=== PATIENT | female | born 1985 | race Two or more races ===

== ENCOUNTER 2022-11-24 08:04 | Outpatient (REF) | payer OTHER, SELFPAY ==
--- NOTE | ~2022-11-24 | XR_ITS ---
EXAMINATION: XR SACROILIAC JOINTS CLINICAL INFORMATION: Dorsalgia. COMPARISON: None available. TECHNIQUE: 3 views of the sacroiliac joints FINDINGS: Sacroiliac joints appear unremarkable without evidence of effusion or widening. No significant sclerosis or spurring is appreciated. Visualized portions of the pelvis do not demonstrate acute fracture or diastasis. No destructive bony lesions are appreciated. XR/XR sacroiliac joint min 3V IMPRESSION: No significant abnormality of the sacroiliac joints identified.
== END 2022-11-24 08:05 | disposition home or self-care (01) ==
LOC: HO.XRAY 08:04
PROVIDERS: PCP Internal Medicine; Visit Provider Internal Medicine Rheumatology
DX: M54.9 Dorsalgia, unspecified (principal); M72.2 Plantar fascial fibromatosis; M47.816 Spondylosis without myelopathy or radiculopathy, lumbar region
CPT/HCPCS: 72202; 99212

== ENCOUNTER 2022-11-24 09:44 | Outpatient (REF) | payer OTHER, SELFPAY ==
[2022-11-24 11:05] LABS: C Reactive Protein < 0.10 mg/dL (< or = 0.50)
[2022-11-24 11:39] LABS: Erythrocyte Sedimentation Rate 5 MM/HR (0-20)
== END 2022-11-24 09:45 | disposition home or self-care (01) ==
LOC: HO.10HDL 09:44
PROVIDERS: Visit Provider Internal Medicine Rheumatology
DX: M54.9 Dorsalgia, unspecified (principal)
CPT/HCPCS: 36415; 85652; 86140

== ENCOUNTER 2022-12-27 11:53 | Emergency (ER) | payer OTHER, SELFPAY ==
--- NOTE | ~2022-12-27 | XR_ITS ---
EXAMINATION: XR CHEST CLINICAL INFORMATION: Chest pressure COMPARISON: None available. TECHNIQUE: 2 views of the chest were obtained. FINDINGS: No significant abnormality is noted involving the heart, lungs, mediastinum, bony thorax or soft tissues. XR/XR chest 2V IMPRESSION: Unremarkable chest examination.
[2022-12-27 12:05] VITALS: BP 151/95; PULSE 110; RESP 18; TEMP 37; O2SAT 99; BMI 34.3
--- NOTE | 2022-12-27 12:13 | ECG_ITS ---
Test Reason : chest pain Blood Pressure : / mmHG Vent. Rate : 092 BPM Atrial Rate : 092 BPM P-R Int : 180 ms QRS Dur : 070 ms QT Int : 364 ms P-R-T Axes : 062 028 040 degrees QTc Int : 450 ms Normal sinus rhythm Possible Left atrial enlargement Borderline ECG When compared with ECG of 20-NOV-2017 22:02, No significant change was found Referred By: Generic ED Physician Electronically Signed By:JOHNNIE WALKER MD
[2022-12-27 12:29] LABS: MANUAL DIFF FLAG NO
[2022-12-27 12:30] LABS: Basophils Absolute Auto 0.1 X10*3/uL (0.0-0.2); Basophils Percent Auto 0.4 % (0-2); Eosinophils Percent Auto 0.3 % (0-4); Hematocrit 39.1 % (37.0-47.0); Hemoglobin 13.5 g/dl (12.0-16.0); Imm Gran Abs Auto 0.04 X10*3/uL (0.00-0.03); Imm Gran Pct Auto 0.3 % (0.0-0.4); Lymphocytes Percent Auto 14.4 % (20-40); Mean Corpuscular HGB Conc 34.5 g/dl (31.0-35.0); Mean Corpuscular Hemoglobin 29.3 pg (27.0-33.0); Mean Platelet Volume 9.1 fL (9.4-12.3); Monocytes Absolute Auto 0.7 X10*3/uL (0.1-1.2); Monocytes Percent Auto 5.4 % (2-11); Neutrophils Absolute Auto 10.9 x10*3/uL (2.0-8.3); Neutrophils Percent Auto 79.2 % (45-73); Platelet Count 296 X10*3/uL (160-400); Red Cell Distribution Width 12.8 % (11.0-16.0); White Blood Count 13.7 X10*3/uL (4.8-10.8)
[2022-12-27 12:47] LABS: Alanine Aminotransferase 14 U/L (0-31); Albumin Level 4.2 g/dL (3.5-5.0); Alkaline Phosphatase 59 U/L (39-117); Anion Gap 16 (12-20); Aspartate Amino Transferase 15 U/L (5-31); Bilirubin Direct 0.2 mg/dL (0.0-0.5); Bilirubin Total 0.5 mg/dL (0.0-1.0); Blood Urea Nitrogen 10 mg/dL (9-16); Calcium 9.5 mg/dL (8.4-10.2); Carbon Dioxide 21 mmol/L (22-29); Chloride 106 mmol/L (96-108); Creatinine Clr Calc Pharmacy 108.4; Estimated Glomerular Filt Rate > 60; Glucose Random 113 mg/dL (60-115); Potassium 3.6 mmol/L (3.3-5.1); Sodium 139 mmol/L (135-145); Total Protein 7.4 g/dL (6.5-8.0)
[2022-12-27] MEDS: 0.9 % Sodium Chloride 1,000 ML 999 ML IV (13:31)
[2022-12-27] MEDS: LORazepam 2 MG/ML VIAL 0.5 MG IVPUSH (13:39)
--- NOTE | 2022-12-27 13:45 | PC.NURSE ---
well appearing individual, resting comfortably in bed. iv established, fluids infusing. vss
[2022-12-27 14:03] LABS: Troponin-I High Sensitivity 36.8 ng/L (<3.5-17.0)
[2022-12-27 14:13] VITALS: BP 134/72; PULSE 75; RESP 18; TEMP 36.9; O2SAT 100
--- NOTE | 2022-12-27 14:42 | ED.GENADULT ---
HPI - General Adult General Chief complaint: Anxiety Stated complaint: panic attacks Time Seen by Provider: 12/27/22 12:57 Source: patient and RN notes reviewed Mode of arrival: ambulatory Limitations: no limitations History of Present Illness HPI narrative: This is a 37-year-old female, with a past medical history of PTSD, OCD, anxiety, and panic attack disorder, who presents emergency department with complaints of panic attack that occurred this morning. Patient reports that last night she went out drinking, reports that she drinks approximately 7-8 mixed beverages. She went to bed and woke up this morning feeling ?hung over?. She states that she felt her heart racing and had some numbness and tingling down her left arm and up into her left jaw. She denies any chest pain however reported that she had some chest tightness. She states that these symptoms are typical of her anxiety attacks that she has had in the past. She states that she took her prescribed Ativan which did not help her. She states that Ativan typically helps her panic attacks. Patient reports that she still has the numbness and tingling down her fingers and up into her jaw. Patient denies any personal cardiac history. She denies history of diabetes, hypertension, hyperlipidemia. No other complaints or concerns at this time. MD complaint: Anxiety, numbness tingling, chest tightness Relieving factors: none Exacerbating factors: none Associated symptoms: denies other symptoms Treatments prior to arrival: none Related Data Home Medications Medication Instructions Recorded Confirmed ibuprofen 800 mg tablet 800 mg PO Q8H PRN pain 11/19/22 11/24/22 lorazepam 0.5 mg tablet 0.5 mg PO DAILY PRN panic attack 11/19/22 11/24/22 Allergies Allergy/AdvReac Type Severity Reaction Status Date / Time No Known Allergies Allergy Unverified 11/24/22 08:31 Review of Systems Review of Systems: Constitutional: No Weight loss, No Fever, No Chills, No Night Sweats, No Fatigue, No Malaise ENT/Mouth: No Hearing loss, No Ear Pain, No Nasal Congestion, No Sinus Pain, No Hoarseness, No sore throat, No Rhinorrhea, No Swallowing Difficulty Eyes: No Eye Pain, No Swelling, No Redness, No Foreign Body, No Discharge, No Vision Changes Cardiovascular: + chest tightness No Chest Pain, No SOB, No Dyspnea on Exertion, No Orthopnea, No Edema, No Palpitations Respiratory: No Cough, No Sputum, No Wheezing, No Smoke Exposure, No Dyspnea Gastrointestinal: No Nausea, No Vomiting, No Diarrhea, No Constipation, No Abdominal pain, No Hematochezia, No Melena Genitourinary: No irregular bleeding, No Dysuria, No Urinary Frequency, No Hematuria, No Urinary Incontinence/retention, No Urgency, No Flank Pain, No Urinary Flow Changes, No Hesitancy Musculoskeletal: No joint pain, No Myalgias, No Joint Swelling Skin: No Skin Lesions, No rash Neuro: No Weakness, + Numbness,+ Paresthesias, No Loss of Consciousness, No Dizziness, No Headache Psych: +Anxiety/Panic, No Depression, No SI/HI/AH/VH, No Social Issues, Heme/Lymph: No Bruising, No Bleeding,No Lymphadenopathy Endocrine: No Polyuria, No Polydipsia, No Temperature Intolerance Yes all other systems are reviewed and are negative Constitutional: Constitutional: Reports as per [facility] Past Medical History Medical History (Updated 12/27/22 @ 16:25 by MELINDA Flores) Acute midline back pain Anxiety and depression Hyperlipidemia Multiple joint pain Surgical History (Updated 11/19/22 @ 10:11 by ANNA Alvarez) History of abnormal cervical Pap smear Family History Family History (Updated 11/24/22 @ 08:32 by ANNA Alvarez) Mother Lung cancer Father Medical history unknown Social History Social History (Updated 11/24/22 @ 08:33 by ANNA Alvarez) Alcohol intake: current Alcohol intake frequency: holidays/special occasions only Patient Tobacco Use Status: Former Tobacco user Advance Directives: No Advance Directives Information Provided: No Current occupational status: employed Current occupation: Hairdresser Physical Exam ED Vital Signs: Vital Signs - 24 hr 12/27/22 12:05 12/27/22 14:13 12/27/22 16:15 Temperature 98.6 F 98.4 F 98.4 F Pulse Rate 110 H 75 75 Respiratory Rate 18 18 16 Blood Pressure 151/95 H 134/72 139/84 Pulse Oximetry 99 100 100 Oxygen Delivery Method Room Air Room Air Room Air BMI result Body Mass Index 34.3 Const General: cooperative, comfortable and no acute distress Orientation/consciousness: patient oriented x3 Limitations: no limitations [facility] Head: Yes normal to inspection, Yes normocephalic and Yes atraumatic Ears: hearing grossly normal bilaterally General nose exam: Normal external nose present Face and sinus: Yes normal facial exam Mouth: Normal oral and palatal mucosa present, oropharynx normal and moist mucous membranes Throat: Yes posterior oropharynx normal Eyes General: appearance normal, both eyes and all related structures Eyelids: Yes eyelids normal Conjunctivae: conjunctivae normal Sclerae: sclerae normal Pupils: Equal, round and reactive pupils present EOM: EOMs intact bilaterally Neck Neck: Yes normal visual inspection, Yes full ROM and Yes no lymphadenopathy Lymphatic: no lymphadenopathy noted Chest Chest palpation & inspection: normal inspection of the chest Resp Effort & Inspection: normal respiratory effort and able to speak in complete sentences Auscultation: clear to auscultation bilaterally, no crackles, no rales, no rhonchi and no wheezes Cardio Rate: regular rate Rhythm: regular rhythm Heart sounds: S1 normal heart sound present and S2 normal heart sound present GI Inspection: Yes normal to inspection Palpation (GI): Soft to palpation, nontender and no guarding Skin General skin exam: no rashes or lesions noted Trauma: no lacerations or abrasions Wounds: no wounds Neuro General: patient oriented x3 and moves all extremities Cranial nerves: Yes Equal, round and reactive pupils present Extrem General: Yes normal to inspection Right upper extremity: normal to inspection Left upper extremity: normal to inspection Right lower extremity: normal to inspection Left lower extremity: normal to inspection Course Reevaluation(s) Reevaluation #1: Troponin elevated at 36.8. Leukocytosis at 13.7. I suspect this is demand and not cardiac in nature. Heart score 1. Will repeat troponin in 3 hours. Patient re-evaluated and reports that her symptoms have completely resolved. Reevaluation #2: Patient re-evaluated, has been asymptomatic. Pending 2nd troponin draw at 4:40pm. Time: 16:21 Reevaluation #3: Second troponin negative delta, patient feeling better eager for discharge given precautions on when to return your patient understands and agrees with the plan. Medications Administered Discontinued Medications Generic Name Dose Route Start Last Admin Trade Name Freq PRN Reason Stop Dose Admin Sodium Chloride 1,000 mls @ 999 mls/hr 12/27/22 13:10 12/27/22 16:56 Ns IV 12/27/22 14:10 Infused .Q1H1M ONE Infusion Lorazepam 0.5 mg 12/27/22 13:10 12/27/22 13:39 Lorazepam 2 Mg/Ml Vial IVPUSH 12/27/22 13:11 0.5 mg ONCE ONE Administration Medical Decision Making Medical Decision Making [facility] Narrative: 37-year-old female, with a past medical history of anxiety, PTSD, OCD, and panic disorder, who presents to the emergency department for numbness and tingling down her left arm and up into her left jaw since this morning. Patient admits that last night she went out drinking and consumed 7-8 mixed beverages last night. She woke up this morning feeling ?hung over , she states that she is feeling dehydrated and felt her heart racing. She notices some numbness and tingling down her left arm and up into her left jaw. Her symptoms were typical of her anxiety attacks that she has had in the past, however they typically respond to Ativan which today this did not help her. On arrival, blood pressure 151/95, pulse 110, all other vital signs within normal limits. I do not suspect ACS at this time however given chest tightness and numbness and tingling down left arm and into left jaw will order troponin. Plan: Labs, EKG, 1 L IV fluids and Ativan 0.5mg IV ordered. Differential Diagnosis Differential Diagnoses: The differential diagnosis associated with the presentation includes Anxiety, panic disorder, dehydration, electrolyte abnormality, ACS-less likely Admission/Observation Consideration of admission/observation: Escalation of care including admission/observation considered Lab Data [facility] Lab Attestation statement: I reviewed the patient's lab results. 12/27/22 12:26 12/27/22 12:26 Labs: Lab Results 12/27/22 12/27/22 12/27/22 Range/Units 12:26 12:26 13:40 WBC 13.7 H (4.8-10.8) X10*3/uL RBC 4.60 (4.20-5.50) X10*6/uL Hgb 13.5 (12.0-16.0) g/dl Hct 39.1 (37.0-47.0) % MCV 85.0 (80.0-98.0) fL MCH 29.3 (27.0-33.0) pg MCHC 34.5 (31.0-35.0) g/dl RDW 12.8 (11.0-16.0) % Plt Count 296 (160-400) X10*3/uL MPV 9.1 L (9.4-12.3) fL Immature Gran % (Auto) 0.3 (0.0-0.4) % Neut % (Auto) 79.2 H (45-73) % Lymph % (Auto) 14.4 L (20-40) % [place] % (Auto) 5.4 (2-11) % Eos % (Auto) 0.3 (0-4) % Baso % (Auto) 0.4 (0-2) % Lymph # (Auto) 2.0 (1.2-4.9) X10*3/uL [place] # (Auto) 0.7 (0.1-1.2) X10*3/uL Eos # (Auto) 0.0 (0.0-0.4) X10*3/uL Baso # (Auto) 0.1 (0.0-0.2) X10*3/uL Abs Immat Gran (auto) 0.04 H (0.00-0.03) X10*3/uL Absolute Neuts (auto) 10.9 H (2.0-8.3) x10*3/uL Absolute Nucleated RBC 0.000 (0.0-0.012) X10*3/uL Nucleated RBC % (auto) 0.0 (0.0-0.2) /100WBC Sodium 139 (135-145) mmol/L Potassium 3.6 (3.3-5.1) mmol/L Chloride 106 (96-108) mmol/L Carbon Dioxide 21 L (22-29) mmol/L Anion Gap 16 (12-20) BUN 10 (9-16) mg/dL Creatinine 0.76 (0.5-1.4) mg/dL Estim Creat Clear Calc 108.4 Estimated GFR > 60 Random Glucose 113 (60-115) mg/dL Calcium 9.5 (8.4-10.2) mg/dL Total Bilirubin 0.5 (0.0-1.0) mg/dL Direct Bilirubin 0.2 (0.0-0.5) mg/dL AST 15 (5-31) U/L ALT 14 (0-31) U/L Alkaline Phosphatase 59 (39-117) U/L Troponin I High Sens 36.8 H (<3.5-17.0) ng/L Total Protein 7.4 (6.5-8.0) g/dL Albumin 4.2 (3.5-5.0) g/dL Urine Test (NEGATIVE) 12/27/22 12/27/22 Range/Units 15:07 16:55 WBC (4.8-10.8) X10*3/uL RBC (4.20-5.50) X10*6/uL Hgb (12.0-16.0) g/dl Hct (37.0-47.0) % MCV (80.0-98.0) fL MCH (27.0-33.0) pg MCHC (31.0-35.0) g/dl RDW (11.0-16.0) % Plt Count (160-400) X10*3/uL MPV (9.4-12.3) fL Immature Gran % (Auto) (0.0-0.4) % Neut % (Auto) (45-73) % Lymph % (Auto) (20-40) % [place] % (Auto) (2-11) % Eos % (Auto) (0-4) % Baso % (Auto) (0-2) % Lymph # (Auto) (1.2-4.9) X10*3/uL [place] # (Auto) (0.1-1.2) X10*3/uL Eos # (Auto) (0.0-0.4) X10*3/uL Baso # (Auto) (0.0-0.2) X10*3/uL Abs Immat Gran (auto) (0.00-0.03) X10*3/uL Absolute Neuts (auto) (2.0-8.3) x10*3/uL Absolute Nucleated RBC (0.0-0.012) X10*3/uL Nucleated RBC % (auto) (0.0-0.2) /100WBC Sodium (135-145) mmol/L Potassium (3.3-5.1) mmol/L Chloride (96-108) mmol/L Carbon Dioxide (22-29) mmol/L Anion Gap (12-20) BUN (9-16) mg/dL Creatinine (0.5-1.4) mg/dL Estim Creat Clear Calc Estimated GFR Random Glucose (60-115) mg/dL Calcium (8.4-10.2) mg/dL Total Bilirubin (0.0-1.0) mg/dL Direct Bilirubin (0.0-0.5) mg/dL AST (5-31) U/L ALT (0-31) U/L Alkaline Phosphatase (39-117) U/L Troponin I High Sens 32.0 H (<3.5-17.0) ng/L Total Protein (6.5-8.0) g/dL Albumin (3.5-5.0) g/dL Urine Test NEGATIVE (NEGATIVE) Independent Interpretation I performed an independent interpretation of an: EKG and Plain X-Ray Interpretation: Chest x-ray reviewed by me with no acute consolidation noted. Will wait for official read EKG normal sinus rhythm with a ventricular rate of 92 beats per minute, SD interval 180, QTC 450, no ST elevation or depression. External Record Review External record reviewed: Inpatient record, Office record, Outpatient record, Prior outpatient labs, Prior outpatient radiology, Primary care record and Outside ED record Scores Heart Score History: -0- slightly suspicious ECG: -0- normal Age: -0- < or = 45 Risk factory: -0- no risk factors known Troponin: -1- >1 - <3x normal limit Score: 1 Risk: 1.7% Discharge Plan Discharge Clinical Impression: Acute anxiety Patient Disposition: Home, Self-Care Instructions: Anxiety (ED) Additional Instructions: Your workup today was reassuring. Please stay well hydrated and take your are ready prescribed lorazepam as needed for a panic attacks. Please follow-up with your primary care physician regarding this visit. If any new or worsening symptoms occur, including but not limited to chest pain, shortness of breath, palpitations, numbness tingling or any other symptoms, please return for re-evaluation. Prescriptions: No Action ibuprofen 800 mg tablet 800 mg PO Q8H PRN (Reason: pain) lorazepam 0.5 mg tablet 0.5 mg PO DAILY PRN (Reason: panic attack)
[2022-12-27 15:11] LABS: UPreg QC Valid YES
[2022-12-27 15:13] LABS: Urine Pregnancy NEGATIVE (NEGATIVE)
[2022-12-27 16:15] VITALS: BP 139/84; PULSE 75; RESP 16; TEMP 36.9; O2SAT 100
== END 2022-12-27 17:46 | disposition home or self-care (01) ==
PROVIDERS: Physician Assistant Medical; Emergency Provider Internal Medicine; PCP Internal Medicine
DX: F41.1 Generalized anxiety disorder (principal); F43.0 Acute stress reaction; F41.0 Panic disorder [episodic paroxysmal anxiety]; R07.89 Other chest pain; Z79.899 Other long term (current) drug therapy
CPT/HCPCS: 36415; 71046; 80053; 81025; 82248; 84484; 85025; 93005; 96361; 96374; 99284; 99285; J2060

== ENCOUNTER 2025-04-12 13:26 | Outpatient (AMB) | payer OTHER, SELFPAY ==
--- NOTE | 2025-04-12 13:27 | A.OFFVIS_ITS ---
Intake Visit Reasons: brain fog Allergies No Known Allergies Allergy (Unverified 11/24/22 08:31) Medication List - Last Reconciled 04/12/25 by Sydnee Franco MD cholecalciferol (vitamin D3) (Vitamin D3) 100 mcg PO DAILY escitalopram oxalate 5 mg PO DAILY ibuprofen 800 mg PO Q8H PRN lorazepam 0.5 mg PO DAILY PRN propranolol 10 mg PO BID PRN HPI Comments Details: 40 years old right-handed woman with symptoms of brain fog and forgetfulness and body pain for about a year. She also suffered from anxiety disorder. She said that this was happening almost every week and lasting for days to weeks. She was also having headaches, which were almost every day. Pain might start in the back of the head on both side coming to the front. She was using eyes for relief. Otherwise pain could continue. She has seen different doctors for these symptoms and apparently no conclusion was reached. Apparently she had a brain MRI done that revealed some white matter changes. In the past she has been diagnosed with interstitial cystitis and related symptoms. Energy level was low. [facility] Medical History (Updated 04/12/25 @ 14:00 by Sydnee Franco MD) Obesity Urinary frequency Vitamin D deficiency Panic attacks Prediabetes Cervicalgia Allergic rhinitis Brain fog Acute midline back pain Multiple joint pain Anxiety and depression Hyperlipidemia Surgical History (Updated 11/19/22 @ 10:11 by ANNA Alvarez) History of abnormal cervical Pap smear Family History (Updated 11/24/22 @ 08:32 by ANNA Alvarez) Mother Lung cancer Father Medical history unknown Social History (Updated 11/24/22 @ 08:33 by ANNA Alvarez) Alcohol intake: current Alcohol intake frequency: holidays/special occasions only Patient Tobacco Use Status: Former Tobacco user Current occupational status: employed Current occupation: Hairdresser Review of Systems Const Details: In terms of review of system she complain of her admitted to anxiety, urinary urgency, joint pain back pain or neck pain, fatigue and malaise, ear pain, forgetfulness, palpitations, muffled hearing, dryness of skin, sinus problems, depression headaches, dizziness and itching. Physical Exam Neuro Other: Mental Status: Alert and oriented to person, place, and time. Normal attention. Normal spontaneous speech, fluency, and comprehension. No obvious issues with mood and memory. Affect is appropriate. Cranial Nerves: CN II: Visual harvey full to confrontation, visual acuity intact. CN III, IV, : Pupils equal, round, reactive to light and accommodation. Extraocular movements are normal. CN V: Facial sensation is normal. CN VII: Facial movements symmetrical. CN VIII: Hearing intact to bedside conversation is normal. CN IX, X: Palate elevates symmetrically. CN XI: Shoulder shrug and head turn symmetrical. CN XII: Tongue midline without atrophy or fasciculations. Motor: Bulk and tone normal in all extremities. No significant muscle weakness in arms and legs. No drift. Reflexes: Deep tendon reflexes 2+ and symmetric. Plantar response down-going bilaterally. Coordination: [id number] and [id number] testing normal. No dysmetria. Gait and Station: No obvious gait abnormality. No ataxia or instability. Sensory: Intact to light touch, pinprick, and vibration. Romberg is negative. Extrapyramidal: Full facial expressions and blinking. No rigidity. Movements are appropriate with no tremor or abnormality. Speech: Normal; no dysarthria or tremor. Assessment & Plan Assessment & Plan (1) Migraine with aura, not intractable, without status migrainosus: Code(s): G43.109 - Migraine with aura, not intractable, without status migrainosus Category: Medical (2) Anxiety and depression: Code(s): F41.9 - Anxiety disorder, unspecified; F32.A - Depression, unspecified Category: Medical (3) Encephalopathy: Code(s): G93.40 - Encephalopathy, unspecified Category: Medical Qualifiers: Encephalopathy type: unspecified encephalopathy Qualified Code(s): G93.40 - Encephalopathy, unspecified Plan Impression recommendations: 40 years old woman who has been complaining of cognitive symptoms including fogginess of mind and forgetfulness, headaches, and mood symptoms including anxiety and depression. She said that she had an MRI of brain that revealed some white matter abnormalities. Her neurological examination did not reveal any obvious abnormality. My recommendation is to bring the CTA of that brain MRI for review as demyelinating disease is part of differential diagnosis. Otherwise my message was that her headaches were of migraine type and she should consider taking propranolol 10 mg twice a day, which was prescribed to her. It can help her for headaches, anxiety, and even palpitations that she gets now and then. She should continue taking escitalopram 5 mg, which might also help with anxiety. Further recommendations would be given after reviewing her MRI. An EEG was also requested to rule out any epileptic etiology of her cognitive symptoms. Orders: Orders EEG electroencephalogram Today G93.40 - Encephalopathy, unspecified Coding Level of Care Code New Pt Level 5 (81786) Diagnoses Migraine with aura, not intractable, without status migrainosus G43.109 Anxiety and depression F41.9; F32.A Encephalopathy, unspecified type G93.40 Encephalopathy type: unspecified encephalopathy
== END 2025-04-12 14:01 | disposition home or self-care (01) ==
LOC: HO.HSM 13:27
PROVIDERS: PCP Internal Medicine; Visit Provider Psychiatry & Neurology Neurology
DX: G43.109 Migraine with aura, not intractable, without status migrainosus (principal); F41.9 Anxiety disorder, unspecified; F32.A Depression, unspecified; G93.40 Encephalopathy, unspecified
CPT/HCPCS: 99204

== ENCOUNTER → 2025-04-12 13:26 | Outpatient (BNVA) | payer OTHER, SELFPAY | PROVIDERS: PCP Internal Medicine; Visit Provider Psychiatry & Neurology Neurology | DX: G43.109 Migraine with aura, not intractable, without status migrainosus (principal); F41.9 Anxiety disorder, unspecified; F32.A Depression, unspecified; G93.40 Encephalopathy, unspecified | CPT/HCPCS: 99202 ==

== ENCOUNTER 2025-04-20 13:25 | Outpatient (REF) | payer OTHER, SELFPAY ==
--- OUTSIDE RECORDS SUMMARY | 2025-04-16 14:03 | XMS_ITS | Encounter Summary ---
Author Organization [facility] Address [address] [place] [address] Care Team Providers Care Digital Marketing Executive Name Role Phone Janey Lizarraga MD Primary Care Pr ovider Reason for Referral * Imaging (Routine) - Authorized Specialty Diagnoses / Procedures Referred By Sofía lorenz Referred To Contact Radiology Diagnoses Abnormal mammogram Procedures US Breast Limited Right Janey Lizarraga MD [address] [place] [address] Phone: tel: fax: [address] Phone: tel: Referral ID Status Reason Start Date Expiration Date V isits Requested Visits Authorized [id number] Authorized 03/22/2025 03/22/2026 1 1 Reason for Visit * Imaging (Routine) - Authorized Specialty Diagnoses / Procedures Referred By Sofía lorenz Referred To Contact Radiology Diagnoses Abnormal mammogram Procedures US Breast Limited Right Janey Lizarraga MD [address] [place] [address] Phone: tel: fax: [address] Phone: tel: Referral ID Status Reason Start Date Expiration Date V isits Requested Visits Authorized [id number] Authorized 03/22/2025 03/22/2026 1 1 Encounter Details Date Type Department Care Team (Latest Contact Info) Description 04/16/2025 2:03 PM EDT - 04/16/2025 11:59 PM EDT Hospital Encounter Radiology Department - [address] [phone] Abnormal mammogram Discharge Disposition: Home or Self Care Social History Tobacco Use Types Packs/Day Years Used Date Smoking Tobacco: Former Smokeless Tobacco: Former Alcohol Use Standard Drinks/Week Comments Yes 0 (1 standard drink = 0.6 oz pur e alcohol) Comments No Sex and Gender Information Value Date Recorded Sex Assigned at Female 09/04/2024 6:48 PM EST Legal Sex Female 2:27 AM EST Gender Identity Female 09/04/2024 6:48 PM EST Sexual Orientation Choose not to disclose 2024 6:48 PM EST documented as of this encounter Medications at Time of Discharge cholecalciferol (VITAMIN D-3) 50 mcg (2,000 unit) tabletIndications: Vitamin D deficiency Take 2 tablets (4,000 Units total) by mouth 1 (one) time each day. 180 tablet 1 02/15/2025 DULoxetine (CYMBALTA) [address] capsuleIndications :Fibromyalgia,Mode rate episode of recurrent major depressive disorder (CMS/HCC V24, CMS/HCC V28) Take 1 capsule (20 mg total) by mouth 1 (one) time each day. Do not crush or chew. 30 each 03/26/2025 ipratropium (ATROVENT) 21 mcg (0.03 %) nasal sprayIndications:C hronic pansinusitis ADMINISTER 1 SPRAY INTO EACH NOSTRIL EVERY 12 HOURS. 90 mL 1 12/12/2024 omeprazole (PriLOSEC) [address] capsule Take 1 capsule (20 mg total) by mouth 1 (one) time each day. Do not crush or chew. 90 each 1 03/28/2025 6 documented as of this encounter Discharge Disposition Disposition Code Departure Means Destination Home or Self Care documented in this encounter Plan of Treatment Upcoming Encounters Date Type Department Care Team ([facility] st Contact Info) Description 05/30/2025 5:00 PM EDT Appointment Radiology Department - [address] [phone] 06/22/2025 3:00 PM EST Office Visit Adult Medicine [facility] - [address] [phone] Janey Lizarraga MD [address] [place] [address] 07/06/2025 9:20 AM EST Consult Gastroenterology - [address] [place] [phone] Love Blanco MD [address] [place] [address] [place] [phone] documented as of this encounter Procedures Procedure Name Priority Date/Time Associated Diagnosis Comments US BREAST LIMITED RIGHT Routine 04/16/2025 2:42 PM EDT Abnormal mammogram documented in this encounter Results * US Breast Limited Right (04/16/2025 2:42 PM EDT) Anatomical Region Laterality Modality Breast Right Ultrasound 04/16/2025 2:34 PM EDT Impressions 04/16/2025 3:38 PM EDT Benign. Findings and recommendations were conveyed to the patient. BI-RADS CATEGORY: 1 - NEGATIVE RECOMMENDATION: Return to annual mammography. Return to annual mammography. Return to annual mammography. Return to annual mammography. Mammo Location: [facility], [address] [place] [address], [phone], . -------- FINAL REPORT -------- Dictated By: Nette Taylor Dictated Date: 04/16/2025 14:34 ET Assigned Physician: Nette Taylor Reviewed and Electronically Signed By: Nette Taylor Signed Date: 04/16/2025 15:38 ET Workstation ID: [id number] Transcribed By: Self Edit Transcribed Date: 04/16/2025 14:39 ET Narrative 04/16/2025 3:38 PM EDT CLINICAL: 40 years old, Female, focal asymmetry outer right breast on screening mammogram of 03/21/2025. COMPARISON: Mammogram 03/13/2024. FINDINGS: MAMMOGRAPHY TECHNIQUE: ML and spot compression CC views of the right breast were obtained digitally with 3-D mammogram (digital breast tomosynthesis). Computer-aided detection was utilized in evaluation of this exam (CAD). Focal asymmetry suggested in the outer right breast on screening study effaces on the spot compression view and is not visible on the ML view. BREAST DENSITY: B - There are scattered areas of fibroglandular density. ULTRASOUND TECHNIQUE: Ultrasound evaluation of the upper outer right breast was performed. There is no evidence of morphologically suspicious mass. Procedure Note Nette Taylor MD - 04/16/2025 CLINICAL: 40 years old, Female, focal asymmetry outer right breast onscreening mammogram of 03/21/2025. COMPARISON: Mammogram 03/13/2024. FINDINGS: MAMMOGRAPHY TECHNIQUE: ML and spot compression CC views of the right breast wereobtained digitally with 3-D mammogram (digital breast tomosynthesis).Computer-aided detection was utilized in evaluation of this exam (CAD). Focal asymmetry suggested in the outer right breast on screening studyeffaces on the spot compression view and is not visible on the ML view. BREAST DENSITY: B - There are scattered areas of fibroglandular density. ULTRASOUND TECHNIQUE: Ultrasound evaluation of the upper outer right breast wasperformed. There is no evidence of morphologically suspicious mass. IMPRESSION: Benign. Findings and recommendations were conveyed to the patient. BI-RADS CATEGORY: 1 - NEGATIVE RECOMMENDATION: Return to annual mammography. Return to annual mammography. Return toannual mammography. Return to annual mammography. Mammo Location: [facility], [address] [place] [address], [phone], . -------- FINAL REPORT -------- Dictated By: Nette Taylor Dictated Date: 04/16/2025 14:34 ET Assigned Physician: Nette Taylor Reviewed and Electronically Signed By: Nette Taylor Signed Date: 04/16/2025 15:38 ET Workstation ID: [id number] Transcribed By: Self Edit Transcribed Date: 04/16/2025 14:39 ET us Janey Lizarraga MD [facility] US PROCEDURE S Final Result documented in this encounter Visit Diagnoses Diagnosis Abnormal mammogram Abnormal mammogram, unspecified documented in this encounter Care Teams Digital Marketing Executive Relationship Specialty Start Date End Date Janey Lizarraga MD [address] [place] [phone] PCP - General Internal Medicine 09/13/24 documented as of this encounter
--- OUTSIDE RECORDS SUMMARY | 2025-04-16 14:03 | XMS_ITS | Encounter Summary ---
Author Organization [facility] Address [address] [place] [address] Care Team Providers Care Hardwood Floor Sander Name Role Phone Janey Lizarraga MD Primary Care Pr ovider Reason for Referral * Imaging (Routine) - Authorized Specialty Diagnoses / Procedures Referred By Sofía lorenz Referred To Contact Radiology Diagnoses Abnormal mammogram Procedures MG Mammo Digital Diagnostic w Richi Right Janey Lizarraga MD [address] [place] [address] Phone: tel: fax: [address] Phone: tel: Referral ID Status Reason Start Date Expiration Date V isits Requested Visits Authorized [id number] Authorized 03/22/2025 03/22/2026 1 1 Reason for Visit * Imaging (Routine) - Authorized Specialty Diagnoses / Procedures Referred By Sofía lorenz Referred To Contact Radiology Diagnoses Abnormal mammogram Procedures MG Mammo Digital Diagnostic w Richi Right Janey Lizarraga MD [address] [place] [address] Phone: tel: fax: [address] Phone: tel: Referral ID Status Reason Start Date Expiration Date V isits Requested Visits Authorized [id number] Authorized 03/22/2025 03/22/2026 1 1 Encounter Details Date Type Department Care Team (Latest Contact Info) Description 04/16/2025 2:03 PM EDT - 04/16/2025 11:59 PM EDT Hospital Encounter Radiology Department - [address] [phone] Abnormal mammogram Discharge Disposition: Home or Self [...] time each day. 180 tablet 1 02/15/2025 6 DULoxetine (CYMBALTA) [address] capsuleIndications :Fibromyalgia,Mode [...] Upcoming Encounters Date Type Department Care Team ([facility] st Contact Info) Description 05/30/2025 5:00 PM EDT Appointment Radiology Department - [address] [phone] 06/22/2025 3:00 PM EST Office Visit Adult Medicine [address] [phone] Janey Lizarraga MD [address] [place] [address] 07/06/2025 9:20 AM EST Consult Gastroenterology - [address] [place] [phone] Love Blanco MD [address] [place] [phone] documented as of this encounter Procedures Procedure Name Priority Date/Time Associated Diagnosis Comments MG MAMMO DIGITAL DIAGNOSTIC W RICHI RIGHT Routine 04/16/2025 2:27 PM EDT Abnormal mammogram documented in this encounter Results * MG Mammo Digital Diagnostic w Richi Right (04/16/2025 2:27 PM EDT) Anatomical Region Laterality Modality Breast Right Mammography 04/16/2025 2:34 PM EDT Impressions 04/16/2025 3:38 PM EDT Benign. Findings and recommendations were conveyed to the patient. BI-RADS CATEGORY: 1 - NEGATIVE RECOMMENDATION: Return to annual mammography. Return to annual mammography. Return to annual mammography. Return to annual mammography. Mammo Location: [facility], [address] [place] [address], [phone], . -------- FINAL REPORT -------- Dictated By: Nette Taylor Dictated Date: 04/16/2025 14:34 ET Assigned Physician: Nette Taylor Reviewed and Electronically Signed By: Nette Taylor Signed Date: 04/16/2025 15:38 ET Workstation ID: [id number] Transcribed By: Self Edit Transcribed Date: 04/16/2025 [...] mammography. Return to annual mammography. Mammo Location: [facility], [address] [place] [address], [phone], . -------- FINAL REPORT -------- Dictated By: Nette Taylor Dictated Date: 04/16/2025 14:34 ET Assigned Physician: Nette Taylor Reviewed and Electronically Signed By: Nette Taylor Signed Date: 04/16/2025 15:38 ET Workstation ID: [id number] Transcribed By: Self Edit Transcribed Date: 04/16/2025 14:39 ET Janey Lizarraga MD IMG BI PROCEDURE S Final Result documented in this encounter Visit Diagnoses Diagnosis Abnormal mammogram Abnormal mammogram, unspecified documented in this encounter Care Teams Hardwood Floor Sander Relationship Specialty Start Date End Date Janey Lizarraga MD [address] [place] [phone] PCP - General Internal Medicine 09/13/24 documented as of this encounter
--- OUTSIDE RECORDS SUMMARY | 2025-04-20 13:30 | XMS_ITS | Clinical Summary ---
Author Organization [facility] [address] [place] [address] [place] [phone] Phone Care Team Providers Care Chief Jailer Name Role Phone Janey Lizarraga MD Primary Care Pr ovider Allergies No known active allergies Medications fluticasone propionate (FLONASE) 50 mcg/actuation nasal sprayIndications: Chronic pansinusitis Administer 1 spray into each nostril 2 (two) times a day. Shake gently. Before first use, prime pump. After use, clean tip and replace cap. 16 g 1 5 Active ipratropium (ATROVENT) 21 mcg (0.03 %) nasal sprayIndications: Chronic pansinusitis ADMINISTER 1 SPRAY INTO EACH NOSTRIL EVERY 12 HOURS. 90 mL 1 5 Active cholecalciferol (VITAMIN D-3) 50 mcg (2,000 unit) tabletIndications :Vitamin D deficiency Take 2 tablets (4,000 Units total) by mouth 1 (one) time each day. 180 tablet 1 5 026 Active DULoxetine (CYMBALTA) [address] capsuleIndication s:Fibromyalgia,Mo derate episode of recurrent major depressive disorder (CMS/HCC V24, CMS/HCC V28) Take 1 capsule (20 mg total) by mouth 1 (one) time each day. Do not crush or chew. 30 each 5 025 Active omeprazole (PriLOSEC) [address] capsule Take 1 capsule (20 mg total) by mouth 1 (one) time each day. Do not crush or chew. 90 each 1 5 026 Active amoxicillin-clavu lanate (AUGMENTIN) 875-125 mg per tabletIndications :Submandibular lymphadenitis Take 1 tablet by mouth 2 (two) times a day for 10 days. 20 each 5 025 Active Problems Problem Noted Date Diagnosed Date Gastroesophageal reflux dise ase with esophagitis without hemorrhage 03/28/2025 Calcific tendinitis of left hip 03/27/2025 Fibromyalgia 03/26/2025 Assessment & Plan (03/26/2025 4:57 PM EDT): Generalized muscle stiffness/aches seem consistent with fibromyalgia. MARIA ANTONIA testing was negative in January. Muscle enzymes was also normal in January. I am disease panel was negative as well. TSH was normal. Will trial duloxetine 20 mg daily. Counseled on possible side effects of the medication Orders: DULoxetine (CYMBALTA) [address] capsule; Take 1 capsule (20 mg total) by mouth 1 (one) time each day. Do not crush or chew. Allergic rhinitis 10/26/2024 Assessment & Plan (10/26/2024 10:19 AM EDT): Continue Flovent and Atrovent nasal sprays Referred to allergy for allergic testing Orders: Ambulatory referral to Allergy; Future Cervicalgia 10/26/2024 Assessment & Plan (10/26/2024 10:19 AM EDT): Will check x-rays. She is referred to orthopedics/physical therapy Advised she can use Tylenol [id number] as needed for the pain Orders: Ambulatory referral to Orthopedic; Future Ambulatory referral to Physical Therapy and Athletic Training; Future Prediabetes 04/27/2024 Assessment & Plan (10/26/2024 10:19 AM EDT): A1c has improved to 5.5. She will continue with weight loss efforts Assessment & Plan (10/04/2024 6:04 PM EST): Continue lifestyle management. Orders: CBC and differential; Future Hemoglobin A1c; Future Alcohol consumption binge drinking 01/08/2023 Overview (07/11/2024): She drinks approximately 7-8 mixed [place] - [facility] (12/27/22) Panic attacks 01/08/2023 Vitamin D deficiency 07/08/2020 Assessment & Plan (10/26/2024 10:19 AM EDT): Start vitamin D 2000 units indefinitely Orders: cholecalciferol (VITAMIN D-3) 50 mcg (2,000 unit) tablet; Take 1 tablet (2,000 Units total) by mouth 1 (one) time each day. Assessment & Plan (10/04/2024 6:04 PM EST): Will update vitamin D level Orders: Vitamin D 25 hydroxy; Future Abnormal Pap smear of cervix 12/02/2018 Overview (07/11/2024): 2005 ASCUS, positive HRHPV - no follow up 2010 HGSIL 2010 [place]po DAPHNEY 1 - no follow up 07/2015 LGSIL, positive HRHPV - no follow up 12/2016 LGSIL, positive HRHPV, few cells suggest high grade - no follow up 11/2018 ASCUS, positive HRHPV 03/2019 DAPHNEY 2 05/2019 NO SHOWED surgery for outpatient Jen LEEP 04/10/2021 ASC-H HR HPV neg 16/18/45 Heart palpitations 06/15/2011 Visual floaters 06/15/2011 Hyperlipidemia 06/09/2011 Assessment & Plan (10/26/2024 10:19 AM EDT): Continue with weight loss efforts. Referred to nutrition Orders: Ambulatory referral to Nutrition Services; Future Assessment & Plan (10/04/2024 6:04 PM EST): Due for fasting labs which are ordered. Continue lifestyle management. She is currently not on a statin Orders: Lipid panel with reflex to direct LDL; Future Comprehensive metabolic panel; Future CBC and differential; Future Urinary frequency 01/26/2011 Overview (07/11/2024): Multiple episodes with negative urine cultures. Overweight (BMI 25.0-29.9) 12/25/2010 Assessment & Plan (10/26/2024 10:19 AM EDT): Continue with weight loss efforts. Referred to nutrition Orders: Ambulatory referral to Nutrition Services; Future Assessment & Plan (10/04/2024 6:04 PM EST): Congratulated on weight loss thus far. She will continue with weight loss efforts with lifestyle management Depression 11/28/2007 Assessment & Plan (03/26/2025 4:57 PM EDT): Start duloxetine 20 mg daily. She will continue weekly therapy Orders: DULoxetine (CYMBALTA) [address] capsule; Take 1 capsule (20 mg total) by mouth 1 (one) time each day. Do not crush or chew. Anxiety 07/07/2007 Assessment & Plan (10/04/2024 6:04 PM EST): Continue therapy weekly Encounters Date Type Department Care Team Description 04/16/2025 2:03 PM EDT - 04/16/2025 11:59 PM EDT Hospital Encounter Radiology Department - [address] [phone] Abnormal mammogram Discharge Disposition: Home or Self Care 04/16/2025 2:03 PM EDT - 04/16/2025 11:59 PM EDT Hospital Encounter Radiology Department - [address] [phone] Abnormal mammogram Discharge Disposition: Home or Self Care 04/09/[address] [phone] Janey Lizarraga MD 03/26/2025 4:48 PM EDT - 03/26/2025 11:59 PM EDT Hospital Encounter [address] [phone] Pain of left hip Discharge Disposition: Home or Self Care 03/26/2025 4:00 PM EDT Office Visit Adult Medicine [address] [phone] Janey Lizarraga MD Pain of left hip (Primary Dx); Esophagitis; Pharyngeal dysphagia; Hoarseness; Fibromyalgia; Moderate episode of recurrent major depressive disorder (CMS/HCC V24, CMS/HCC V28); Submandibular lymphadenitis; Abnormal finding on MRI of brain 03/21/2025 9:21 AM EDT - 03/21/2025 11:59 PM EDT Hospital Encounter Radiology Department - [address] [phone] Encounter for screening mammogram for breast cancer Discharge Disposition: Home or Self Care 03/05/2025 Telephone Adult [address] [phone] Janey Lizarraga MD 02/15/2025 Telephone Adult [address] [phone] Janey Lizarraga MD 02/14/2025 5:53 PM EDT - 02/14/2025 11:59 PM EDT Hospital Encounter Radiology [address] [phone] Brain fog; Forgetfulness; Nonintractable episodic headache, unspecified headache type Discharge Disposition: Home or Self Care 02/14/2025 1:55 PM EDT - 02/14/2025 11:59 PM EDT Hospital Encounter Radiology Department [address] [phone] Neck pain; Tenderness of neck Discharge Disposition: Home or Self Care 02/09/2025 1:30 PM EDT Office Visit Adult [address] [phone] Gretchen Malave MD Brain fog (Primary Dx); Forgetfulness; Nonintractable episodic headache, unspecified headache type; Hyperlipidemia, unspecified hyperlipidemia type; Vitamin D deficiency disease; Other fatigue; Muscle pain; Neck pain; Tenderness of neck; Decreased hearing of both ears; Enlarged lymph node from Last 3 Months Immunizations Name Administration Dates Next Due Influenza trivalent, 0.5mL, preservative free (Fluarix; FluLaval; Fluzone) ages 6mo and older (Afluria) 3 years and older 05/11/2012,06/15/2011,05/02/2008 PPD Test 06/30/2006 Tdap Tetanus diptheria acell ular pertussis (Boostrix; Adacel) 7yo and older 04/27/2019,05/02/2008 Surgical History Surgery Date Site/Laterality Comments OTHER SURGICAL HISTORY PROCEDURE: DENIES PREVIOUS SURGERY Medical History Medical History Date Comments Depression 11/28/2007 DX:Depression Obese 12/25/2010 DX:Obese Moderate dysplasia of cervix 03/25/2019 DX: Moderate dysplasia of cervix Family History Medical History Relation Name Comments Stroke Aunt maternal Suicide Attempts Father Diabetes Maternal Grandfather Coronary artery disease Maternal Grandmother Lung cancer Mother +smoker, heart disease Relation Name Status Comments Aunt maternal Father Maternal Grandfather Maternal Grandmother Mother Paternal Grandfather unknown Other Paternal Grandmother unknown Other Sister x 2 Alive Social History Tobacco Use Types Packs/Day Years Used Date Smoking Tobacco: Former Smokeless Tobacco: Former Tobacco Cessation:Counseling Given: Not Answered Alcohol Use Standard Drinks/Week Comments Yes 0 (1 standard drink = 0.6 oz pur e alcohol) Comments No Sex and Gender Information Value Date Recorded Sex Assigned at Female 09/04/2024 6:48 PM EST Legal Sex Female 2:27 AM EST Gender Identity Female 09/04/2024 6:48 PM EST Sexual Orientation Choose not to disclose 2024 6:48 PM EST Obstetrics History Para Term AB IAB SAB Ectopic Multiple Livin g Live Births 2 2 2 2 Date Outcome GA Total Labor Labor/2nd/3rd Weight Sex Type Anes PTL Lisa A1 A5 Name Clin Term Term Last Filed Vital Signs Vital Sign Reading Time Taken Comments Blood Pressure 121/85 03/26/2025 3:53 PM EDT Pulse 81 03/26/2025 3:53 PM EDT Temperature 36.6 C (97.9 F) 03/26/2025 3:53 PM EDT Respiratory Rate 18 03/26/2025 3:53 PM EDT Oxygen Saturation 98% 09/13/2024 4:50 PM EST Inhaled Oxygen Concentration - - Weight 72.6 kg (160 lb) 03/26/2025 3:53 PM EDT Height 162.6 cm (5' 4 ) 03/26/2025 3:53 PM EDT Body Mass Index 27.46 03/26/2025 3:53 PM EDT Plan of Treatment Upcoming Encounters Date Type Department Care Team (Late st Contact Info) Description 05/30/2025 5:00 PM EDT Appointment Radiology Department - [address] [phone] 06/22/2025 3:00 PM EST Office Visit Adult Medicine South [address] [phone] Janey Lizarraga MD [address] [place] [address] 07/06/2025 9:20 AM EST Consult Gastroenterology - [address] [phone] Love Blanco MD [address] [place] [id number] Health Maintenance Due Date Last Done Comments Social Influencers of Health Screening 07/05/2022 Depression Screening 08/02/2024 04/27/2024 COVID-19 Vaccine ( - 2024- season) 2025 05/09/2021, 04/18/2021 Cervical Cancer Screening: HPV 04/10/2026 04/10/2021 Breast Cancer Screening 04/16/2027 04/16/20, 03/21/2025, 03/27/2024, Additional history exists DTaP,Tdap,and Td Vaccines (3 - Td or Tdap) 04/27/2029 04/27/2019, 05/02/2008 Cholesterol Screening (Lipid Panel) 02/12/2030 02/12/2025, 10/05/2024, 02/07/2024 RSV Immunization Adult Patients (1 - 1-dose 75+ series) 2058 Influenza Vaccine Discontinued 05/11/2012, , 05/02/2008 HIV Screening Completed 03/09/2023 Hepatitis C Screening Completed 03/09/2023 HIB Vaccines Aged Out No longer eligi ble based on patient's age to complete this topic HPV Vaccines Aged Out No longer eligi ble based on patient's age to complete this topic Hepatitis A Vaccines Aged Out No long er eligible based on patient's age to complete this topic Hepatitis B Vaccines Discontinued IPV Vaccines Aged Out No longer eligi ble based on patient's age to complete this topic MMR Vaccines Aged Out No longer eligi ble based on patient's age to complete this topic Meningococcal ACWY Vaccine Aged Out N o longer eligible based on patient's age to complete this topic Meningococcal B Vaccine Aged Out No l onger eligible based on patient's age to complete this topic Pneumococcal Vaccine: Pediatrics (0 to 5 Years) and At-Risk Patients (6 to 49 Years) Aged Out No longer eligible based on patient's age to complete this topic RSV Immunization Patients Under 20 months Aged Out No longer eligible based on patient's age to complete this topic Varicella Vaccines Aged Out No longer eligible based on patient's age to complete this topic Procedures Procedure Name Priority Date/Time Associated Diagnosis Comments US BREAST LIMITED RIGHT Routine 04/16/2025 2:42 PM EDT Abnormal mammogram MG MAMMO DIGITAL DIAGNOSTIC W RICHI RIGHT Routine 04/16/2025 2:27 PM EDT Abnormal mammogram HELICOBACTER PYLORI BREATH TEST Routine 03/27/2025 12:18 PM EDT Esophagitis XR HIP 2-3 VIEWS LEFT Routine 03/26/2025 4:55 PM EDT Pain of left hip MG MAMMO DIGITAL SCREENING W RICHI BILAT Routine 03/21/2025 9:41 AM EDT Encounter for screening mammogram for breast cancer BABESIA MICROTI ANTIBODIES, IGG AND IGM Routine 03/05/2025 12:49 PM EDT Tick bite, unspecified site, initial encounter BORRELIA BURGDORFERI ANTIBODY Routine 03/05/2025 12:49 PM EDT Tick bite, unspecified site, initial encounter ANAPLASMA PHAGOCYTOPHILUM ANTIBODIES, IGG AND IGM Routine 03/05/2025 12:49 PM EDT Tick bite, unspecified site, initial encounter EHRLICHIA CHAFFEENSIS ANTIBODIES, IGG AND IGM Routine 03/05/2025 12:49 PM EDT Tick bite, unspecified site, initial encounter MR BRAIN WO CONTRAST Routine 02/14/2025 6:32 PM EDT Brain fog Forgetfulness Nonintractable episodic headache, unspecified headache type US HEAD NECK SOFT TISSUE Routine 02/14/2025 2:09 PM EDT Neck pain Tenderness of neck EXTERNAL ULTRASOUND REPORT 02/14/2025 LIPID PANEL WITH REFLEX TO DIRECT LDL Routine 02/12/2025 1:53 PM EDT Hyperlipidemia, unspecified hyperlipidemia type VITAMIN B12 Routine 02/09/2025 2:02 PM EDT Brain fog Forgetfulness THYROID STIMULATING HORMONE WITH REFLEX TO FREE T4 AND FREE T3 Routine 02/09/2025 2:02 PM EDT Brain fog Forgetfulness TREPONEMA PALLIDUM ANTIBODY WITH REFLEX TO RPR AND PARTICLE AGGLUTINATION Routine 02/09/2025 2:02 PM EDT Brain fog Forgetfulness VITAMIN D 25 HYDROXY Routine 02/09/2025 2:02 PM EDT Vitamin D deficiency disease FERRITIN Routine 02/09/2025 2:02 PM EDT Other fatigue FOLATE Routine 02/09/2025 2:02 PM EDT Other fatigue IRON AND TIBC Routine 02/09/2025 2:02 PM EDT Other fatigue MARIA ANTONIA IFA WITH TITER AND PATTERN Routine 02/09/2025 2:02 PM EDT Other fatigue CREATINE KINASE Routine 02/09/2025 2:02 PM EDT Muscle pain Neck pain Tenderness of neck HM DEPRESSION SCREENING Routine 04/27/2024 HM HEPATITIS C SCREENING Routine 03/09/2023 HM HIV SCREENING Routine 03/09/2023 HM HPV Routine 04/10/2021 from Last 3 Months or Most Recently Relevant to Health Maintenance Results * US Breast Limited Right (04/16/2025 2:42 PM EDT) Anatomical Region Laterality Modality Breast Right Ultrasound 04/16/2025 2:34 PM EDT Impressions 04/16/2025 3:38 PM EDT Benign. Findings and recommendations were conveyed to the patient. BI-RADS CATEGORY: 1 - NEGATIVE RECOMMENDATION: Return to annual mammography. Return to annual mammography. Return to annual mammography. Return to annual mammography. Mammo Location: [facility], [address] [place] [address], [id number], . -------- FINAL REPORT -------- Dictated By: Nette Taylor Dictated Date: 04/16/2025 14:34 ET Assigned Physician: Nette Taylor Reviewed and Electronically Signed By: Nette Taylor Signed Date: 04/16/2025 15:38 ET Workstation ID: [id number] Transcribed By: Self Edit Transcribed Date: 04/16/2025 [...] mammography. Return to annual mammography. Mammo Location: [facility], [address] [place] [address], [facility], . -------- FINAL REPORT -------- Dictated By: Nette Taylor Dictated Date: 04/16/2025 14:34 ET Assigned Physician: Nette Taylor Reviewed and Electronically Signed By: Nette Taylor Signed Date: 04/16/2025 15:38 ET Workstation ID: [id number] Transcribed By: Self Edit Transcribed Date: 04/16/2025 14:39 ET us Janey Lizarraga MD IMG US PROCEDURE S Final Result * MG Mammo Digital Diagnostic w Richi Right (04/16/2025 2:27 PM EDT) Anatomical Region Laterality Modality Breast Right Mammography 04/16/2025 2:34 PM EDT Impressions 04/16/2025 3:38 PM EDT Benign. Findings and recommendations were conveyed to the patient. BI-RADS CATEGORY: 1 - NEGATIVE RECOMMENDATION: Return to annual mammography. Return to annual mammography. Return to annual mammography. Return to annual mammography. Mammo Location: [facility], [address] [place] [address], [id number], . -------- FINAL REPORT -------- Dictated By: Nette Taylor Dictated Date: 04/16/2025 14:34 ET Assigned Physician: Nette Taylor Reviewed and Electronically Signed By: Nette Taylor Signed Date: 04/16/2025 15:38 ET Workstation ID: [id number] Transcribed By: Self Edit Transcribed Date: 04/16/2025 [...] mammography. Return to annual mammography. Mammo Location: [facility], [address] [place] [address], [phone], . -------- FINAL REPORT -------- Dictated By: Nette Taylor Dictated Date: 04/16/2025 14:34 ET Assigned Physician: Nette Taylor Reviewed and Electronically Signed By: Nette Taylor Signed Date: 04/16/2025 15:38 ET Workstation ID: [id number] Transcribed By: Self Edit Transcribed Date: 04/16/2025 14:39 ET Janey Lizarraga MD IMG BI PROCEDURE S Final Result * Helicobacter pylori breath test (03/27/2025 12:18 PM EDT) H Pylori Breath Test Negative Negative LAB CHEMISTRY METHOD 03/28/2025 2:09 PM EDT [facility] Breath Oral cavity structure / Unknown Non-blood Collection / Unknown 03/27/2025 12:18 PM EDT 03/27/2025 12:18 PM EDT Janey Lizarraga MD LAB BODY FLUIDS AND STOOLS ORDERABLES Final Result [facility] [address] [place] [address], [place] [phone] * XR Hip 2-3 Views Left (03/26/2025 4:55 PM EDT) Anatomical Region Laterality Modality Lower Extremities, Hip Left Radiograp hic Imaging 03/26/2025 8:14 PM EDT Impressions 03/26/2025 8:22 PM EDT Probable calcific tendinopathy as described. POS - [id number] -------- FINAL REPORT -------- Dictated By: Jennifer Friend Dictated Date: 03/26/2025 20:14 ET Assigned Physician: Jennifer Friend Reviewed and Electronically Signed By: Jennifer Friend Signed Date: 03/26/2025 20:22 ET Workstation ID: [id number] Transcribed By: Self Edit Transcribed Date: 03/26/2025 20:14 ET Narrative 03/26/2025 8:22 PM EDT EXAM: Pelvic and left hip x-ray. HISTORY: Left hip pain. COMPARISON: None VIEWS: AP view of the pelvis and AP and frog-lateral views of the left hip performed. FINDINGS: Left hip joint space is maintained without periarticular spurring. No femoroacetabular impingement morphology identified. No evidence of an acute fracture or dislocation. Pelvic ring is intact. No destructive bone lesion. Faint calcifications adjacent to the left proximal femoral diaphysis in the region of the linea aspera and more apparent calcifications on the right which can be seen with calcific tendinopathy. Procedure Note Jennifer Friend MD - 03/26/2025 EXAM: Pelvic and left hip x-ray. HISTORY: Left hip pain. COMPARISON: None VIEWS: AP view of the pelvis and AP and frog-lateral views of the left hipperformed. FINDINGS: Left hip joint space is maintained without periarticular spurring. Nofemoroacetabular impingement morphology identified. No evidence of anacute fracture or dislocation. Pelvic ring is intact. No destructivebone lesion. Faint calcifications adjacent to the left proximal femoraldiaphysis in the region of the linea aspera and more apparentcalcifications on the right which can be seen with calcifictendinopathy. IMPRESSION: Probable calcific tendinopathy as described. POS - [id number] -------- FINAL REPORT -------- Dictated By: Jennifer Friend Dictated Date: 03/26/2025 20:14 ET Assigned Physician: Jennifer Friend Reviewed and Electronically Signed By: Jennifer Friend Signed Date: 03/26/2025 20:22 ET Workstation ID: [id number] Transcribed By: Self Edit Transcribed Date: 03/26/2025 20:14 ET Janey Lizarraga MD IMG XR PROCEDURE S Final Result * (ABNORMAL) MG Mammo Digital Screening w Richi bilat (03/21/2025 9:41 AM EDT) Anatomical Region Laterality Modality Breast Bilateral Mammography 03/22/2025 10:1 4 AM EDT Impressions 03/22/2025 10:35 AM EDT Irregular focal asymmetry outer right breast. Additional views of the right breast in the full-field mediolateral and spot compression cc projections are suggested. Ultrasound may also be needed if this is a persistent finding. BI-RADS CATEGORY: 0 - INCOMPLETE - NEED ADDITIONAL IMAGING EVALUATION RECOMMENDATION: Additional right breast imaging recommended. Ultrasound is recommended for the Right Breast. Mammo Location: [facility], [address] [place] [address], [id number], . -------- FINAL REPORT -------- Dictated By: Nette Taylor Dictated Date: 03/22/2025 10:14 ET Assigned Physician: Nette Taylor Reviewed and Electronically Signed By: Nette Taylor Signed Date: 03/22/2025 10:35 ET Workstation ID: [id number] Transcribed By: Self Edit Transcribed Date: 03/22/2025 10:18 ET Narrative 03/22/2025 10:35 AM EDT CLINICAL: 40 years old, Female, routine annual exam. COMPARISON: Mammogram 03/13/2024. TECHNIQUE: Bilateral MLO and CC views were obtained digitally with 3-D mammogram (digital breast tomosynthesis). Computer-aided detection was utilized in evaluation of this exam (CAD). FINDINGS: There is no evidence of architectural distortion. No worrisome calcifications are evident. There is an irregular focal asymmetry in the outer right breast on the CC view, middle depth. This is not confirmed on the MLO view. BREAST DENSITY: C - The breasts are heterogeneously dense which may obscure small masses. Procedure Note Nette Taylor MD - 03/22/2025 CLINICAL: 40 years old, Female, routine annual exam. COMPARISON: Mammogram 03/13/2024. TECHNIQUE: Bilateral MLO and CC views were obtained digitally with 3-Dmammogram (digital breast tomosynthesis). Computer-aided detection wasutilized in evaluation of this exam (CAD). FINDINGS: There is no evidence of architectural distortion. No worrisomecalcifications are evident. There is an irregular focal asymmetry in theouter right breast on the CC view, middle depth. This is not confirmedon the MLO view. BREAST DENSITY: C - The breasts are heterogeneously dense which mayobscure small masses. IMPRESSION: Irregular focal asymmetry outer right breast. Additional views of theright breast in the full-field mediolateral and spot compression ccprojections are suggested. Ultrasound may also be needed if this is apersistent finding. BI-RADS CATEGORY: 0 - INCOMPLETE - NEED ADDITIONAL IMAGING EVALUATION RECOMMENDATION: Additional right breast imaging recommended. Ultrasound is recommended forthe Right Breast. Mammo Location: [facility], [address] [place] [address], [id number], . -------- FINAL REPORT -------- Dictated By: Nette Taylor Dictated Date: 03/22/2025 10:14 ET Assigned Physician: Nette Taylor Reviewed and Electronically Signed By: Nette Taylor Signed Date: 03/22/2025 10:35 ET Workstation ID: [id number] Transcribed By: Self Edit Transcribed Date: 03/22/2025 10:18 ET us Janey Lizarraga MD IM BI PROCEDURE S Final Result * Babesia microti antibodies, IGG and IGM (03/05/2025 12:49 PM EDT) Babesia microti IgG Antibodies <1:64 03/10/2025 10:38 PM EDT [facility] Babesia microti IgM Antibodies <1:20 03/10/2025 10:38 PM EDT [facility] Babesia microti Interpretation SEE NOTE 03/10/2025 10:38 PM EDT [facility] Comment: ANTIBODY NOT DETECTED REFERENCE RANGES: IgG <1:64 IgM <1:20 Elevated antibody levels to B. microti indicate exposure to the organism. Human babesiosis infection is transmitted by the bite of an infected Ixodes tick or less frequently from transfusion with blood from an infected donor. Definitive diagnosis is made by identifying intraerythrocytic organisms in peripheral blood. In patients with low parasitemia, antibody detection by IFA is recommended. IgG levels greater than or equal to 1:1024 can be detected in acute phase patients with parasites in blood smears. The IFA assay can be used as a seroepidemiologic tool to study the frequency and distribution of B. microti in endemic areas especially in persons with mixed infections also involving Borrelia burgdorferi. This test was developed and its analytical performance characteristics have been determined by [facility]. It has not been cleared or approved by FDA. This assay has been validated pursuant to the CLIA regulations and is used for clinical purposes. Test Performed at: [facility] [address] [address] [address] Jaime Hooper MD, PhD Blood Venous blood specimen / Unknown Venipuncture / Unknown 03/05/2025 12:49 PM EDT 03/05/2025 12:49 PM EDT Janey Lizarraga MD LAB BLOOD ORDERA BLES Final Result [facility] [address] [place] [address] * Anaplasma phagocytophilum antibodies, IGG and IGM (03/05/2025 12:49 PM EDT) Anaplasma phagocytophilum IgG Ab <1:64 <1:64 03/13/2025 4:05 PM EDT [facility] Anaplasma phagocytophilum IgM Ab <1:20 <1:20 03/13/2025 4:05 PM EDT [facility] Anaplasma phagocytophilum Interpretation SEE BELOW 03/13/2025 4:05 PM EDT [facility] Comment:Antibody Not Detecte d Comment SEE BELOW 03/13/2025 4:05 PM EDT [facility] Comment: Anaplasma phagocytophilum is the tick-borne agent causing Human Granulocytic Ehrlichiosis (HGE). HGE is distinct and separate from Human Monocytic Ehrlichiosis (HME), caused by Ehrlichia chaffeensis. Serologic crossreactivity between A. phagocyto- philum and E. chaffeensis is minimal (5-15%). This test was developed and its analytical performance characteristics have been determined by [facility], [place]. It has not been cleared or approved by the U.S. Food and Drug Administration. This assay has been validated pursuant to the CLIA regulations and is used for clinical purposes. Test Performed by [facility], [employer] [facility], [address] [place] [address] Morgan Go M.D., Ph.D., Director of Laboratories , CLIA [id number] Blood Venous blood specimen / Unknown Venipuncture / Unknown 03/05/2025 12:49 PM EDT 03/05/2025 12:49 PM EDT Janey Lizarraga MD LAB BLOOD ORDERA BLES Final Result [facility] [address] [place] [address] * Ehrlichia chaffeensis antibodies, IgG and IgM (03/05/2025 12:49 PM EDT) Ehrlichia chaffeensis Ab IgG <1:64 <1:64 03/13/2025 4:05 PM EDT [facility] Ehrlichia chaffeensis Ab IgM <1:20 <1:20 03/13/2025 4:05 PM EDT [facility] Interpretation SEE BELOW 03/13/2025 4:05 PM EDT [facility] Comment:Antibody Not Detecte d Comment SEE BELOW 03/13/2025 4:05 PM EDT [facility] Comment: Ehrlichia chaffeenis has been identified as the causative agent of Human Monocytic Ehrlichiosis (HME). Infected individuals produce specific antibodies to E. chaffeensis that can be detected by an immuno- fluorescent antibody (IFA) test. Single IgG IFA titers of 1:64 or greater indicate exposure to E. chaffeensis. A four-fold rise in IgG titers between acute and convalescent samples and/or the presence of IgM antibody against E. chaffeensis suggest recent or current infection. This test was developed and its analytical performance characteristics have been determined by [facility] [place]. It has not been cleared or approved by the U.S. Food and Drug Administration. This assay has been validated pursuant to the CLIA regulations and is used for clinical purposes. Test Performed by [facility], [employer] [facility], [address] [place] [address] Morgan Go M.D., Ph.D., Director of Laboratories , CLIA [id number] Blood Venous blood specimen / Unknown Venipuncture / Unknown 03/05/2025 12:49 PM EDT 03/05/2025 12:49 PM EDT Janey Lizarraga MD LAB BLOOD ORDERA BLES Final Result [facility] [address] [place] [address] * Borrelia burgdorferi antibody (03/05/2025 12:49 PM EDT) [facility] Lyme Ab Negative Negative LAB CHEMISTRY METHOD 03/06/2025 9:44 AM EDT [facility] Comment: No laboratory evidence of infection with B. burgdorferi (Lyme disease). Negative results may occur in patients recently infected (<=14 days) with B. burgdorferi. If recent infection is suspected, repeat testing on a new sample collected in 7- 14 days is recommended. Blood Venous blood specimen / Unknown Venipuncture / Unknown 03/05/2025 12:49 PM EDT 03/05/2025 12:49 PM EDT Janey Lizarraga MD LAB BLOOD ORDERA BLES Final Result [facility] [address] [place] [address], * MR Brain wo Contrast (02/14/2025 6:32 PM EDT) Anatomical Region Laterality Modality Head and Neck Magnetic Resonan ce 02/15/2025 4:35 PM EDT Narrative 02/15/2025 4:41 PM EDT MRI of the head without intravenous contrast. History brain focal. Blurry vision. Forgetfulness. Examination was performed on 1.5 Helga magnet without administration of intravenous contrast. There is a large magnetic susceptibility artifact probably from the dental metal obscuring visualization of the inferior aspects of the orbits as well as face. No previous MRI examinations are available for comparison. There is no evidence of midline shift, extra or intra-axial blood or fluid collections. There is no visible masses, mass effect, territorial infarctions, abnormal magnetic susceptibility artifact or focal areas of restricted diffusion. There are few nonspecific small nonspecific foci of increased FLAIR signal in the subcortical and deep supratentorial white matter. No focal signal abnormalities were identified in the posterior fossa. Ventricular system is symmetric and normal in size. Most ventricle and basal cisterns are midline and patent. Mastoid processes are aerated. Paranasal sinuses could not be evaluated due to magnetic susceptibility artifact from the dental metal. CONCLUSIONS: Nonspecific white matter signal abnormalities in both cerebral hemispheres. Major differential diagnosis should include infectious/inflammatory etiology such as Lyme disease, multiple sclerosis, vasculitis, migraine, chronic small vessel ischemia among the other possibilities. Please correlate clinically. -------- FINAL REPORT -------- Dictated By: Brisa Gaona Dictated Date: 02/15/2025 16:35 ET Assigned Physician: Brisa Gaona Reviewed and Electronically Signed By: Brisa Gaona Signed Date: 02/15/2025 16:41 ET Workstation ID: [id number] Transcribed By: Self Edit Transcribed Date: 02/15/2025 16:35 ET Procedure Note Brisa Gaona MD - 02/15/2025 MRI of the head without intravenous contrast. History brain focal. Blurry vision. Forgetfulness. Examination was performed on 1.5 Helga magnet without administration ofintravenous contrast. There is a large magnetic susceptibility artifactprobably from the dental metal obscuring visualization of the inferioraspects of the orbits as well as face. No previous MRI examinations are available for comparison. There is no evidence of midline shift, extra or intra-axial blood or fluidcollections. There is no visible masses, mass effect, territorialinfarctions, abnormal magnetic susceptibility artifact or focal areas ofrestricted diffusion. There are few nonspecific small nonspecific foci of increased FLAIR signalin the subcortical and deep supratentorial white matter. No focal signalabnormalities were identified in the posterior fossa. Ventricular system is symmetric and normal in size. Most ventricle andbasal cisterns are midline and patent. Mastoid processes are aerated.Paranasal sinuses could not be evaluated due to magnetic susceptibilityartifact from the dental metal. CONCLUSIONS: Nonspecific white matter signal abnormalities in bothcerebral hemispheres. Major differential diagnosis should includeinfectious/inflammatory etiology such as Lyme disease, multiple sclerosis,vasculitis, migraine, chronic small vessel ischemia among the otherpossibilities. Please correlate clinically. -------- FINAL REPORT -------- Dictated By: Brisa Gaona Dictated Date: 02/15/2025 16:35 ET Assigned Physician: Brisa Gaona Reviewed and Electronically Signed By: Brisa Gaona Signed Date: 02/15/2025 16:41 ET Workstation ID: [id number] Transcribed By: Self Edit Transcribed Date: 02/15/2025 16:35 ET us Gretchen Malave MD IMG MRI PROCEDURES Final Re sult * US Head Neck Soft Tissue (02/14/2025 2:09 PM EDT) Anatomical Region Laterality Modality Head and Neck Ultrasound 02/14/2025 7:14 PM EDT Narrative 02/14/2025 7:17 PM EDT Ultrasound of the soft tissues of the neck. History right submandibular pain. Examination was directed by the patient to the region of concern which corresponds to enlarged lymph node measuring 1.9 x 0.9 x 1.4 cm. Cortex measures approximately 3 mm. Thyroid gland was visualized with heterogeneous echotexture and increased vascularity on color Doppler examination. No discrete focal lesions were identified. Right thyroid lobe measures 5.1 x 1.7 x 2 cm. Right thyroid lobe measures 5.7 x 1.9 x 2 cm. Isthmus measures 6 mm. CONCLUSIONS: Palpable abnormality corresponds to enlarged lymph node in the right submandibular area. It could be reactive. Clinical evaluation is recommended. Follow-up in 3 months should be considered. Heterogeneous in echotexture hypervascular thyroid gland without evidence of focal lesions. -------- FINAL REPORT -------- Dictated By: Brisa Gaona Dictated Date: 02/14/2025 19:14 ET Assigned Physician: Brisa Gaona Reviewed and Electronically Signed By: Brisa Gaona Signed Date: 02/14/2025 19:17 ET Workstation ID: [id number] Transcribed By: Self Edit Transcribed Date: 02/14/2025 19:14 ET Procedure Note Brisa Gaona MD - 02/14/2025 Ultrasound of the soft tissues of the neck. History right submandibular pain. Examination was directed by the patient to the region of concern whichcorresponds to enlarged lymph node measuring 1.9 x 0.9 x 1.4 cm. Cortexmeasures approximately 3 mm. Thyroid gland was visualized with heterogeneous echotexture and increasedvascularity on color Doppler examination. No discrete focal lesions wereidentified. Right thyroid lobe measures 5.1 x 1.7 x 2 cm. Right thyroidlobe measures 5.7 x 1.9 x 2 cm. Isthmus measures 6 mm. CONCLUSIONS: Palpable abnormality corresponds to enlarged lymph node inthe right submandibular area. It could be reactive. Clinical evaluation isrecommended. Follow-up in 3 months should be considered. Heterogeneous in echotexture hypervascular thyroid gland without evidenceof focal lesions. -------- FINAL REPORT -------- Dictated By: Brisa Gaona Dictated Date: 02/14/2025 19:14 ET Assigned Physician: Brisa Gaona Reviewed and Electronically Signed By: Brisa Gaona Signed Date: 02/14/2025 19:17 ET Workstation ID: [id number] Transcribed By: Self Edit Transcribed Date: 02/14/2025 19:14 ET us Gretchen Malave MD IM US PROCEDURES Final Res ult * External Ultrasound Report (02/14/2025) Anatomical Region Laterality Modality Ultrasound us Provider [facility] IM US PROCEDURES Final Result * (ABNORMAL) Lipid panel with reflex to direct LDL (02/12/2025 1:53 PM EDT) Cholesterol 250(H) 0 - 200 mg/dL LAB CHEMISTRY METHOD 02/12/2025 8:54 PM EDT [facility] Triglycerides 119 0 - 150 mg/dL LAB CHEMISTRY METHOD 02/12/2025 8:54 PM EDT [facility] HDL 61 >=40 mg/dL LAB CHEMISTRY METHOD 02/12/2025 8:54 PM EDT [facility] LDL Calculated 165(H) 0 - 100 mg/dL LAB CHEMISTRY METHOD 02/12/2025 8:54 PM T [facility] VLDL Cholesterol Tor 23.8 mg/dL LAB CHEMISTRY METHOD 02/12/2025 8:54 PM EDT [facility] Non HDL Chol. (LDL+VLDL) 189(H) <145 mg/dL LAB CHEMISTRY METHOD 02/12/2025 8:54 PM EDT [facility] Chol/HDL Ratio 4.1 0.0 - 4.4 LAB CHEMISTRY METHOD 02/12/2025 8:54 PM [facility] Blood Venous blood specimen / Unknown Venipuncture / Unknown 02/12/2025 1:53 PM EDT 02/12/2025 1:53 PM EDT Gretchen Malave MD LAB BLOOD ORDERABLES Final Result Performing Organization Address City/[facility]/ZIP Co de Phone Number [facility] [address] [place] [address], [place] [phone] * Treponema pallidum antibody with reflex to RPR and particle agglutination (02/09/2025 2:02 PM EDT) Pathologist [facility] T. Pallidum Antibodies Negative Negative LAB CHEMISTRY METHOD 02/09/2025 5:55 PM EDT [facility] Blood Venous blood specimen / Unknown Venipuncture / Unknown 02/09/2025 2:02 PM EDT 02/09/2025 2:02 PM EDT Gretchen Malave MD LAB BLOOD ORDERABLES Final Result Performing Organization Address [facility]/ZIP Co de Phone Number [facility] [address] [place] [address], [place] [phone] * Thyroid stimulating hormone with reflex to free t4 and free t3 (02/09/2025 2:02 PM EDT) Pathologist [facility] TSH 3.78 0.40 - 4.00 mcIU/mL LAB CHEMISTRY METHOD 02/09/2025 5:44 PM EDT [facility] Blood Venous blood specimen / Unknown Venipuncture / Unknown 02/09/2025 2:02 PM EDT 02/09/2025 2:02 PM EDT us Gretchen Malave MD LAB BLOOD ORDERABLES Final Result Performing Organization Address [facility]/ZIP Co de Phone Number [facility] [address] [place] [address], [place] [phone] * MARIA ANTONIA IFA with titer and pattern (02/09/2025 2:02 PM EDT) [facility] MARIA ANTONIA Negative Negative 02/11/2025 12:44 PM EDT [facility] Blood Venous blood specimen / Unknown Venipuncture / Unknown 02/09/2025 2:02 PM EDT 02/09/2025 2:02 PM EDT Gretchen Malave MD LAB BLOOD ORDERABLES Final Result [facility] [address] [place] [address], [place] [phone] * Iron and TIBC (02/09/2025 2:02 PM EDT) [facility] Iron 64 40 - 150 mcg/dL LAB CHEMISTRY METHOD 02/09/2025 5:19 PM EDT [facility] TIBC 344 250 - 450 mcg/dL LAB CHEMISTRY METHOD 02/09/2025 5:19 PM EDT [facility] Iron Saturation 19 15 - 50 % LAB CHEMISTRY METHOD 02/09/2025 5:19 PM EDT [facility] Blood Venous blood specimen / Unknown Venipuncture / Unknown 02/09/2025 2:02 PM EDT 02/09/2025 2:02 PM EDT Gretchen Malave MD LAB BLOOD ORDERABLES Final Result [facility] [address] [place] [address], [place] [phone] * (ABNORMAL) Vitamin D 25 hydroxy (02/09/2025 2:02 PM EDT) [facility] Vit D, 25-Hydroxy 25.8(L) 30.0 - 80.0 ng/mL LAB CHEMISTRY METHOD 02/09/2025 5:43 PM EDT [facility] Blood Venous blood specimen / Unknown Venipuncture / Unknown 02/09/2025 2:02 PM EDT 02/09/2025 2:02 PM EDT Gretchen Malave MD LAB BLOOD ORDERABLES Final Result [facility] [address] [place] [address], [place] [phone] * Folate (02/09/2025 2:02 PM EDT) [facility] Folate 15.5 2.8 - 17.0 ng/ml LAB CHEMISTRY METHOD 02/09/2025 5:43 PM EDT [facility] Blood Venous blood specimen / Unknown Venipuncture / Unknown 02/09/2025 2:02 PM EDT 02/09/2025 2:02 PM EDT Gretchen Malave MD LAB BLOOD ORDERABLES Final Result Performing Organization Address [facility]/ZIP Co de Phone Number [facility] [address] [place] [address], [place] [phone] * Ferritin (02/09/2025 2:02 PM EDT) [facility] Ferritin 14 8 - 252 ng/mL LAB CHEMISTRY METHOD 02/09/2025 5:43 PM EDT [facility] Blood Venous blood specimen / Unknown Venipuncture / Unknown 02/09/2025 2:02 PM EDT 02/09/2025 2:02 PM EDT Gretchen Malave MD LAB BLOOD ORDERABLES Final Result [facility] [address] [place] [address], [place] [phone] * Vitamin B12 (02/09/2025 2:02 PM EDT) [facility] Vitamin B-12 274 250 - 900 pcg/mL LAB CHEMISTRY METHOD 02/09/2025 5:43 PM EDT [facility] Blood Venous blood specimen / Unknown Venipuncture / Unknown 02/09/2025 2:02 PM EDT 02/09/2025 2:02 PM EDT Gretchen Malave MD LAB BLOOD ORDERABLES Final Result [facility] [address] [place] [address], [place] [phone] * Creatine kinase (02/09/2025 2:02 PM EDT) [facility] Total CK 71 22 - 269 unit/L LAB CHEMISTRY METHOD 02/09/2025 5:19 PM EDT [facility] Blood Venous blood specimen / Unknown Venipuncture / Unknown 02/09/2025 2:02 PM EDT 02/09/2025 2:02 PM EDT Gretchen Malave MD LAB BLOOD ORDERABLES Final Result [facility] [address] [place] [address], [place] [phone] * Depression Screening (04/27/2024) [facility] Depression Screening abstracted [facility] Provider HEALTH MAINTENANCE Final Result * HIV Screening (03/09/2023) [facility] HIV Screening abstracted Historical Provider HEALTH MAINTENANCE Final Result * Hepatitis C Screening (03/09/2023) [facility] Hepatitis C Screening abstracted [facility] Provider HEALTH MAINTENANCE Final Result * Cervical Cancer Screening: HPV (04/10/2021) [facility] Cervical Cancer Screening: HPV positive, abstracted Comment:HIGH RISK HPV: POSIT GOMEZ, HPV 16: NEGATIVE HPV 18/45: NEGATIVE us Historical Provider HEALTH MAINTENANCE Final Result from Last 3 Months or Most Recently Relevant to Health Maintenance Insurance [facility] [employer] Care Teams Chief Jailer Relationship Specialty Start Date End Date Janey Lizarraga MD [address] [place] [phone] PCP - General Internal Medicine 09/13/24
--- NOTE | 2025-04-20 15:32 | EEG_ITS ---
Roomed Performed:?402 Reason: Encephalopathy, symptoms of brain fog and forgetfulness and body pain for about a year. brain MRI done that revealed some white matter changes History: Obesity, Urinary frequency, Vitamin D deficiency, Panic attacks, Prediabetes, Cervicalgia, Allergic,,,, rhinitis, Brain fog, Acute midline back pain, Multiple joint pain, Anxiety and depression, Hyperlipidemia Medication: cholecalciferol (vitamin D3)escitalopram oxalate, ibuprofen, lorazepam, propranolol Tech comments: asked patient to state name and , answered correctly, when asked where she was, she stated [facility]. Photic stimulation: Completed Hyperventilation:?Completed Behavioral state: calm, relaxed State of Consciousness: awake Skull defect: None Sedation: None Handedness: Right Duration of study:?30 min ? ? Description: This is a 16 channel EEG with an EKG lead. Patient is reported awake during the tracing. Background EEG rhythm is 10-12 hertz 5-20 microvolt posteriorly and lower amplitude fast anteriorly. Photic stimulation does not produce any significant abnormality. Hyperventilation is unremarkable. Cardiac lead does not reveal any significant abnormality. No sharp wave spikes or paroxysmal tendency noted. Impression: Unremarkable EEG. VANE
== END 2025-04-20 13:26 | disposition home or self-care (01) ==
LOC: HO.NEURO 13:25
PROVIDERS: Visit Provider Psychiatry & Neurology Neurology
DX: G93.40 Encephalopathy, unspecified (principal); Z79.899 Other long term (current) drug therapy
CPT/HCPCS: 95816

== ENCOUNTER → 2025-04-20 15:32 | Outpatient (BNV) | payer OTHER, SELFPAY | PROVIDERS: Visit Provider Psychiatry & Neurology Neurology | DX: G93.40 Encephalopathy, unspecified (principal) | CPT/HCPCS: 95816 ==

== ENCOUNTER 2025-05-31 08:25 | Outpatient (AMB) | payer OTHER, SELFPAY ==
--- NOTE | 2025-05-31 08:35 | A.OFFVIS_ITS ---
Intake Visit Reasons: follow up after results Allergies No Known Allergies Allergy (Unverified 11/24/22 08:31) HPI Comments Details: 40 years old woman who has been complaining of cognitive symptoms including fogginess of mind and forgetfulness, headaches, and mood symptoms including anxiety and depression. She said that she had an MRI of brain that revealed some white matter abnormalities. Her neurological examination did not reveal any obvious abnormality. She was here with her brain MRI that was reviewed. She also had details of her laboratories done at [facility], which were also reviewed. Previous labs done at [facility] were also reviewed. [facility] Medical History (Updated 05/31/25 @ 08:48 by Sydnee Franco MD) Obesity Urinary frequency Vitamin D deficiency Panic attacks Prediabetes Cervicalgia Allergic rhinitis Brain fog Acute midline back pain Multiple joint pain Anxiety and depression Hyperlipidemia Surgical History (Updated 11/19/22 @ 10:11 by ANNA Alvarez) History of abnormal cervical Pap smear Family History (Updated 11/24/22 @ 08:32 by ANNA Alvarez) Mother Lung cancer Father Medical history unknown Social History (Updated 11/24/22 @ 08:33 by ANNA Alvarez) Alcohol intake: current Alcohol intake frequency: holidays/special occasions only Patient Tobacco Use Status: Former Tobacco user Current occupational status: employed Current occupation: Hairdresser Review of Systems Narrative Headaches were not as bad. Brain fog was better. Physical Exam Neuro Other: Mental Status: Alert and oriented to person, place, and time. Normal attention. Normal spontaneous speech, fluency, and comprehension. No obvious issues with mood and memory. Affect is appropriate. Cranial Nerves: CN II: Visual harvey full to confrontation, visual acuity intact. CN III, IV, : Pupils equal, round, reactive to light and accommodation. Extraocular movements are normal. CN V: Facial sensation is normal. CN VII: Facial movements symmetrical. CN VIII: Hearing intact to bedside conversation is normal. CN IX, X: Palate elevates symmetrically. CN XI: Shoulder shrug and head turn symmetrical. CN XII: Tongue midline without atrophy or fasciculations. Motor: Bulk and tone normal in all extremities. No significant muscle weakness in arms and legs. No drift. Gait and Station: No obvious gait abnormality. No ataxia or instability. Extrapyramidal: Full facial expressions and blinking. No rigidity. Movements are appropriate with no tremor or abnormality. Speech: Normal; no dysarthria or tremor. Assessment & Plan Assessment & Plan (1) Migraine with aura, not intractable, without status migrainosus: Code(s): G43.109 - Migraine with aura, not intractable, without status migrainosus Category: Medical (2) Anxiety and depression: Code(s): F41.9 - Anxiety disorder, unspecified; F32.A - Depression, unspecified Category: Medical (3) White matter abnormality on MRI of brain: Comment: MRI brain WO at [facility] in January 2025: A few small FLAIR hyperintensities, non s pecific, but not trivial Labs at [facility] in 2024: HDL/LDL 61/165, Folate 15.5, Ferritin 14, Vit D 25, Vit B12 274, TSH 3.78, Babesiosis IgG/IgM neg, Lyme neg, T. pallidum test neg, Anaplasma phagocytophilum IgG/IgM neg, Ehrlichia chaff IgG/IgM neg Code(s): R90.82 - White matter disease, unspecified Category: Medical Plan Impression: a: Migraine b: White matter changes of unknown etiology c: Anxiety c: Non specific cognitive symptoms that may be related to anxiety Rec: Some additional labs to r/o any immune condition that may explain her brain MRI findings and symptoms. Orders: Orders Erythrocyte Sedimentation Rate Today R90.82 - White matter disease, unspecified Rheumatoid Factor Today R90.82 - White matter disease, unspecified Anti DNA DS Antibody Today R90.82 - White matter disease, unspecified Immunofixation Pnl, Serum Today R90.82 - White matter disease, unspecified MARIA ANTONIA Reflex Titer and Pattern Today R90.82 - White matter disease, unspecified Coding Level of Care Code Est Pt Level 4 (30195) Diagnoses Migraine with aura, not intractable, without status migrainosus G43.109 Anxiety and depression F41.9; F32.A White matter abnormality on MRI of brain R90.82
--- OUTSIDE RECORDS SUMMARY | 2025-05-31 09:05 | XMS_ITS ---
Author Name [facility] Organization Unknown Care Team Organization Name Specialty Phone Email Start Date End Da te [facility] Li Jalloh [facility] 06/09/2022
== END 2025-05-31 08:55 | disposition home or self-care (01) ==
LOC: HO.HSM 08:26
PROVIDERS: Visit Provider Psychiatry & Neurology Neurology
DX: G43.109 Migraine with aura, not intractable, without status migrainosus (principal); F41.9 Anxiety disorder, unspecified; F32.A Depression, unspecified; R90.82 White matter disease, unspecified
CPT/HCPCS: 99214

== ENCOUNTER 2025-05-31 08:25 | Outpatient (REF) | payer OTHER, SELFPAY ==
--- OUTSIDE RECORDS SUMMARY | 2025-05-30 16:52 | XMS_ITS | Encounter Summary ---
Author Organization [facility] Address [address] [place] [address] Care Team Providers Care Research Geologist Name Role Phone Janey Lizarraga MD Primary Care Pr ovider Reason for Referral * Imaging (Routine) - Pending Review Specialty Diagnoses / Procedures Referred By Sofía lorenz Referred To Contact Radiology Diagnoses Submandibular lymphadenitis Procedures US Head Neck Soft Tissue Janey Lizarraga MD [address] [place] [address] Phone: tel: fax: [address] Phone: tel: Referral ID Status Reason Start Date Expiration Date V isits Requested Visits Authorized [id number] Pending Review 03/26/2025 03/26/2026 1 1 Reason for Visit * Imaging (Routine) - Pending Review Specialty Diagnoses / Procedures Referred By Sofía lorenz Referred To Contact Radiology Diagnoses Submandibular lymphadenitis Procedures US Head Neck Soft Tissue Janey Lizarraga MD [address] [place] [address] Phone: tel: fax: [address] Phone: tel: Referral ID Status Reason Start Date Expiration Date V isits Requested Visits Authorized [id number] Pending Review 03/26/2025 03/26/2026 1 1 Encounter Details Date Type Department Care Team (Latest Contact Info) Description 05/30/2025 4:52 PM EDT - 05/30/2025 11:59 PM EDT Hospital Encounter Radiology Department - [address] [phone] Submandibular lymphadenitis Discharge Disposition: Home or Self Care Social [...] time each day. 180 tablet 1 02/15/2025 escitalopram (LEXAPRO) 5 mg tablet Take 1 tablet (5 mg total) by mouth 1 (one) time each day. ipratropium (ATROVENT) 21 mcg (0.03 %) nasal sprayIndications:C hronic pansinusitis ADMINISTER 1 SPRAY INTO EACH NOSTRIL EVERY 12 HOURS. 90 mL 1 12/12/2024 omeprazole (PriLOSEC) [address] capsule Take 1 capsule (20 mg total) by mouth 1 (one) time each day. Do not crush or chew. 90 each 1 03/28/2025 propranoloL (INDERAL) 10 mg tablet Take 1 tablet (10 mg total) by mouth 3 (three) times a day. documented as of this encounter Discharge Disposition Disposition Code Departure Means Destination Home or Self Care documented in this encounter Plan of Treatment Upcoming Encounters Date Type Department Care Team (Late st Contact Info) Description 06/21/2025 2:30 PM EST Office Visit Adult Medicine [facility] [address] [place], [place] [phone] Oneida Wheeler PA [address] [place] [address] 07/06/2025 9:20 AM EST Consult Gastroenterology - [address] [facility] [address] [place] [address] Love Blanco MD [address] [place] [phone] 07/16/2025 1:30 PM EST Office Visit Orthopedic Surgery - [place] [address] [facility] [address] [place] [phone] Nazanin Irizarry MD [address] [place] [phone] Pending Results Name Type Priority Associated Diagnoses Date /Time US Head Neck Soft Tissue Imaging Routine Submandibular lymphadenitis 05/30/2025 5:01 PM EDT Scheduled Orders Name Type Priority Associated Diagnoses Orde r Schedule US Head Neck Soft Tissue Imaging Routine Submandibular lymphadenitis Once for 1 Occurrences starting 05/30/2025 until 05/30/2025 documented as of this encounter Visit Diagnoses Diagnosis Submandibular lymphadenitis documented in this encounter Care Teams Research Geologist Relationship Specialty Start Date End Date Janey Lizarraga MD [address] [place], [place] PCP - General Internal Medicine 09/13/24 documented as of this encounter
--- OUTSIDE RECORDS SUMMARY | 2025-05-31 10:06 | XMS_ITS | Clinical Summary ---
Author Organization [facility] [address] [place] [address] [place] [phone] Phone Care Team Providers Care Biomechanical Engineer Name Role Phone Janey Lizarraga MD Primary Care Pr ovider Allergies No known active allergies Medications fluticasone propionate (FLONASE) 50 mcg/actuation nasal sprayIndications :Chronic pansinusitis Administer 1 spray into each nostril 2 (two) times a day. Shake gently. Before first use, prime pump. After use, clean tip and replace cap. 16 g 1 5 Active ipratropium (ATROVENT) 21 mcg (0.03 %) nasal sprayIndications :Chronic pansinusitis ADMINISTER 1 SPRAY INTO EACH NOSTRIL EVERY 12 HOURS. 90 mL 1 5 Active cholecalciferol (VITAMIN D-3) 50 mcg (2,000 unit) tabletIndication s:Vitamin D deficiency Take 2 tablets (4,000 Units total) by mouth 1 (one) time each day. 180 tablet 1 5 08/14/19 26 Active DULoxetine (CYMBALTA) [address] capsuleIndicatio ns:Fibromyalgia, Moderate episode of recurrent major depressive disorder (CMS/HCC V24, CMS/HCC V28) Take 1 capsule (20 mg total) by mouth 1 (one) time each day. Do not crush or chew. 30 each 5 Active omeprazole (PriLOSEC) [address] capsule Take 1 capsule (20 mg total) by mouth 1 (one) time each day. Do not crush or chew. 90 each 1 09/24/19 Active Additional Information Patient not taking.Reported on 05/24/2025 escitalopram (LEXAPRO) 5 mg tablet Take 1 tablet (5 mg total) by mouth 1 (one) time each day. Active propranoloL (INDERAL) 10 mg tablet Take 1 tablet (10 mg total) by mouth 3 (three) times a day. Active Active Problems Problem Noted Date Diagnosed Date [...] orthopedics/physical therapy Advised she can use Tylenol [id number] as needed for the pain Orders: Ambulatory [...] She drinks approximately 7-8 mixed [place] - C ER (12/27/22) Panic attacks 01/08/2023 Vitamin D [...] Pap smear of cervix 12/02/2018 Overview (07/11/2024): 2006 ASCUS, positive HRHPV - no follow up [...] Encounters Date Type Department Care Team Description 05/30/2025 4:52 PM EDT - 05/30/2025 11:59 PM EDT Hospital Encounter Radiology Department - [address] [phone] Submandibular lymphadenitis Discharge Disposition: Home or Self Care 05/24/2025 3:00 PM EDT Office Visit Orthopedic Surgery [facility] [address] [place] [address] [place] [phone] Nazanin Irizarry MD 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 (Primary Dx) 04/16/2025 2:03 PM EDT - 04/16/2025 11:59 PM EDT Hospital Encounter Radiology Department - [address] [phone] Abnormal mammogram Discharge Disposition: Home or Self Care 04/16/2025 2:03 PM EDT - 04/16/2025 11:59 PM EDT Hospital Encounter Radiology Department - [address] [phone] Abnormal mammogram Discharge Disposition: Home or Self Care 04/09/2025 Telephone Adult Medicine [address] [phone] Janey Lizarraga MD 03/26/2025 4:48 PM EDT - 03/26/2025 11:59 PM EDT Hospital Encounter XRAY [address] [phone] Pain of left hip Discharge Disposition: Home or Self Care 03/26/2025 4:00 PM EDT Office Visit Adult [address] [phone] Janey Lizarraga MD Pain of left hip (Primary Dx); Esophagitis; Pharyngeal dysphagia; Hoarseness; Fibromyalgia; Moderate episode of recurrent major depressive disorder (CMS/HCC V24, CMS/HCC V28); Submandibular lymphadenitis; Abnormal finding on MRI of brain 03/21/2025 9:21 AM EDT - 03/21/2025 11:59 PM EDT Hospital Encounter Radiology Department [address] [phone] Encounter for screening mammogram for breast cancer Discharge Disposition: Home or Self Care 03/05/2025 Telephone Adult Medicine [address] [phone] Janey Lizarraga MD from Last 3 Months Immunizations Immunization Administration Dates Next Due Influenza trivalent, 0.5mL, [...] EST Inhaled Oxygen Concentration - - Weight 75.8 kg (167 lb) 05/24/2025 2:52 PM EDT Height 162.6 cm (5' 4.02 ) 05/24/2025 2:52 PM ED T Body Mass Index 28.65 05/24/2025 2:52 PM EDT Plan of Treatment Upcoming Encounters Date Type Department Care Team (Late st Contact Info) Description 06/21/2025 2:30 PM EST Office Visit Adult Medicine [address] [phone] Liam, [place], [place] [address] [place] [address] 07/06/2025 9:20 AM EST Consult Gastroenterology - [address] [facility] [address] [place] [phone] Love Blanco MD [address] [place] [phone] 07/16/2025 1:30 PM EST Office Visit Orthopedic Surgery - [place] [address] [facility] [address] [place] [phone] Nazanin Irizarry MD [address] [place] [phone] Health Maintenance Due Date Last Done Comments Social Influencers of Health Screening 07/05/2022 Depression Screening 08/02/2024 04/27/2024 COVID-19 Vaccine ( - season) 2025 05/09/2021, 04/18/2021 HPV Vaccines (2 - 3-dose SCDM series) 06/27/2025 05/30/2025 Cervical Cancer Screening: HPV 04/10/2026 04/10/2021 Breast [...] EDT Tick bite, unspecified site, initial encounter LIPID PANEL WITH REFLEX TO DIRECT LDL Routine 02/12/2025 1:53 PM EDT Hyperlipidemia, unspecified hyperlipidemia type DEPRESSION SCREENING Routine 04/27/2024 HEPATITIS C SCREENING Routine 03/09/2023 HIV SCREENING Routine 03/09/2023 HPV Routine 04/10/2021 from Last 3 Months [...] mammography. Return to annual mammography. Mammo Location: [facility], [address] [place] [address], [phone], . -------- FINAL REPORT -------- Dictated By: Nette Taylor Dictated Date: 04/16/2025 14:34 ET Assigned Physician: Nette Taylor Reviewed and Electronically Signed By: Nette Taylor Signed Date: 04/16/2025 15:38 ET Workstation ID: [id number] Transcribed By: Self Edit Transcribed Date: 04/16/2025 [...] mammography. Return to annual mammography. Mammo Location: [facility], [address] [place] [address], [phone], . -------- FINAL REPORT -------- Dictated By: Nette Taylor Dictated Date: 04/16/2025 14:34 ET Assigned Physician: Nette Taylor Reviewed and Electronically Signed By: Nette Taylor Signed Date: 04/16/2025 15:38 ET Workstation ID: [id number] Transcribed By: Self Edit Transcribed Date: 04/16/2025 [...] mammography. Return to annual mammography. Mammo Location: [facility], [address] [place] [address], [phone], . -------- FINAL REPORT -------- Dictated By: Nette Taylor Dictated Date: 04/16/2025 14:34 ET Assigned Physician: Nette Taylor Reviewed and Electronically Signed By: Nette Taylor Signed Date: 04/16/2025 15:38 ET Workstation ID: [id number] Transcribed By: Self Edit Transcribed Date: 04/16/2025 [...] mammography. Return to annual mammography. Mammo Location: [facility], [address] [place] [address], [phone], . -------- FINAL REPORT -------- Dictated By: Nette Taylor Dictated Date: 04/16/2025 14:34 ET Assigned Physician: Nette Taylor Reviewed and Electronically Signed By: Nette Taylor Signed Date: 04/16/2025 15:38 ET Workstation ID: [id number] Transcribed By: Self Edit Transcribed Date: 04/16/2025 14:39 ET Janey Lizarraga MD IMG BI PROCEDURE S Final Result * Helicobacter pylori breath test (03/27/2025 12:18 PM EDT) H Pylori Breath Test Negative Negative LAB CHEMISTRY METHOD 03/28/2025 2:09 PM EDT [facility] Breath Oral cavity structure / Unknown Non-blood Collection / Unknown 03/27/2025 12:18 PM EDT 03/27/2025 12:18 PM EDT Janey Lizarraga MD LAB BODY FLUIDS AND STOOLS ORDERABLES Final Result [facility] [address] [place] [address], [place] [phone] * XR Hip 2-3 Views Left (03/26/2025 4:55 PM EDT) Anatomical Region Laterality Modality Lower Extremities, Hip Left Radiograp hic Imaging 03/26/2025 8:14 PM EDT Impressions 03/26/2025 8:22 PM EDT Probable calcific tendinopathy as described. POS - [id number] -------- FINAL REPORT -------- Dictated By: Jennifer Friend Dictated Date: 03/26/2025 20:14 ET Assigned Physician: Jennifer Friend Reviewed and Electronically Signed By: Jennifer Friend Signed Date: 03/26/2025 20:22 ET Workstation ID: [id number] Transcribed By: Self Edit Transcribed Date: 03/26/2025 [...] Probable calcific tendinopathy as described. POS - [id number] -------- FINAL REPORT -------- Dictated By: Jennifer Friend Dictated Date: 03/26/2025 20:14 ET Assigned Physician: Jennifer Friend Reviewed and Electronically Signed By: Jennifer Friend Signed Date: 03/26/2025 20:22 ET Workstation ID: [id number] Transcribed By: Self Edit Transcribed Date: 03/26/2025 [...] recommended for the Right Breast. Mammo Location: [facility], [address] [place] [address], [id number], . -------- FINAL REPORT -------- Dictated By: Nette Taylor Dictated Date: 03/22/2025 10:14 ET Assigned Physician: Nette Taylor Reviewed and Electronically Signed By: Nette Taylor Signed Date: 03/22/2025 10:35 ET Workstation ID: [id number] Transcribed By: Self Edit Transcribed Date: 03/22/2025 [...] is recommended forthe Right Breast. Mammo Location: [facility], [address] [place] [address], [phone], . -------- FINAL REPORT -------- Dictated By: Nette Taylor Dictated Date: 03/22/2025 10:14 ET Assigned Physician: Nette Taylor Reviewed and Electronically Signed By: Nette Taylor Signed Date: 03/22/2025 10:35 ET Workstation ID: [id number] Transcribed By: Self Edit Transcribed Date: 03/22/2025 10:18 ET us Janey Lizarraga MD [facility] BI PROCEDURE S Final Result * Babesia microti antibodies, IGG and IGM (03/05/2025 12:49 PM EDT) Babesia microti IgG Antibodies <1:64 03/10/2025 10:38 PM EDT [facility] Babesia microti IgM Antibodies <1:20 03/10/2025 10:38 PM EDT [facility] Babesia microti Interpretation SEE NOTE 03/10/2025 [...] analytical performance characteristics have been determined by [email or web address]. It has not been cleared or approved by FDA. This assay has been validated pursuant to the CLIA regulations and is used for clinical purposes. Test Performed at: [email or web address] [address] [phone] Jaime Hooper MD, PhD Blood Venous blood specimen / Unknown Venipuncture / Unknown 03/05/2025 12:49 PM EDT 03/05/2025 12:49 PM EDT Janey Lizarraga MD LAB BLOOD ORDERA BLES Final Result [facility] [address] [place] [address] * Anaplasma phagocytophilum antibodies, IGG and IGM [...] analytical performance characteristics have been determined by [employer] [place]. It has not been cleared or approved by the U.S. Food and Drug Administration. This assay has been validated pursuant to the CLIA regulations and is used for clinical purposes. Test Performed by [facility], [employer] [place], [address] [place] [address] Morgan Go M.D., Ph.D., Director of Laboratories , CLIA [id number] Blood Venous blood specimen / Unknown Venipuncture / Unknown 03/05/2025 12:49 PM EDT 03/05/2025 12:49 PM EDT Janey Lizarraga MD LAB BLOOD ORDERA BLES Final Result [facility] [address] [place] [address] * Ehrlichia chaffeensis antibodies, IgG and IgM (03/05/2025 12:49 PM EDT) Ehrlichia chaffeensis Ab IgG <1:64 <1:64 03/13/2025 4:05 PM EDT [facility] Ehrlichia chaffeensis Ab IgM <1:20 <1:20 03/13/2025 4:05 PM EDT [facility] Interpretation SEE BELOW 03/13/2025 4:05 PM EDT [facility] Comment:Antibody Not Detecte d Comment SEE BELOW 03/13/2025 4:05 PM EDT [facility] Comment: Ehrlichia chaffeenis has been identified [...] analytical performance characteristics have been determined by [employer] [place]. It has not been cleared or approved by the U.S. Food and Drug Administration. This assay has been validated pursuant to the CLIA regulations and is used for clinical purposes. Test Performed by [facility], [employer], [address] [place] [address] Morgan Go M.D., Ph.D., Director of Laboratories , CLIA [id number] Blood Venous blood specimen / Unknown Venipuncture / Unknown 03/05/2025 12:49 PM EDT 03/05/2025 12:49 PM EDT Janey Lizarraga MD LAB BLOOD ORDERA BLES Final Result [facility] [address] [place] [address] * Borrelia burgdorferi antibody (03/05/2025 12:49 PM EDT) [facility] Lyme Ab Negative Negative LAB CHEMISTRY METHOD 03/06/2025 9:44 AM EDT [facility] Comment: No laboratory evidence of infection with B. burgdorferi (Lyme disease). Negative results may occur in patients recently infected (<=14 days) with B. burgdorferi. If recent infection is suspected, repeat testing on a new sample collected in 7- 14 days is recommended. Blood Venous blood specimen / Unknown Venipuncture / Unknown 03/05/2025 12:49 PM EDT 03/05/2025 12:49 PM EDT us Janey Lizarraga MD LAB BLOOD ORDERA BLES Final Result [facility] [address] [place] [address], [place] [phone] * (ABNORMAL) Lipid panel with reflex to direct LDL (02/12/2025 1:53 PM EDT) [facility] Cholesterol 250(H) 0 - 200 mg/dL LAB CHEMISTRY METHOD 02/12/2025 8:54 PM EDT [facility] Triglycerides 119 0 - 150 mg/dL LAB CHEMISTRY METHOD 02/12/2025 8:54 PM EDT [facility] HDL 61 >=40 mg/dL LAB CHEMISTRY METHOD 02/12/2025 8:54 PM EDT [facility] LDL Calculated 165(H) 0 - 100 mg/dL LAB CHEMISTRY METHOD 02/12/2025 8:54 PM EDT [facility] VLDL Cholesterol Tor 23.8 mg/dL LAB CHEMISTRY METHOD 02/12/2025 8:54 PM EDT [facility] Non HDL Chol. (LDL+VLDL) 189(H) <145 mg/dL LAB CHEMISTRY METHOD 02/12/2025 8:54 PM EDT [facility] Chol/HDL Ratio 4.1 0.0 - 4.4 LAB CHEMISTRY METHOD 02/12/2025 8:54 PM EDT [facility] Blood Venous blood specimen / Unknown Venipuncture / Unknown 02/12/2025 1:53 PM EDT 02/12/2025 1:53 PM EDT Gretchen Malave MD LAB BLOOD ORDERABLES Final Result [facility] [address] [place] [address], [place] [phone] * Depression Screening (04/27/2024) Depression Screening abstracted Historical Provider HEALTH MAINTENANCE Final Result * HIV Screening (03/09/2023) Pathologist [facility] HIV Screening abstracted [facility] Provider HEALTH MAINTENANCE Final Result * Hepatitis C Screening (03/09/2023) Pathologist [facility] Hepatitis C Screening abstracted [facility] Provider HEALTH MAINTENANCE Final Result * Cervical Cancer Screening: HPV (04/10/2021) Pathologist [facility] Cervical Cancer Screening: HPV positive, abstracted Comment:HIGH RISK HPV: POSIT GOEMZ, HPV 16: NEGATIVE HPV 18/45: NEGATIVE [facility] Provider HEALTH MAINTENANCE Final Result from Last 3 Months or Most Recently Relevant to Health Maintenance Insurance [facility] [employer] Care Teams Biomechanical Engineer Relationship Specialty Start Date End Date Janey Lizarraga MD [address] [place] [address] PCP - General Internal Medicine 09/13/24
[2025-06-06 15:23] LABS: Anti Nuclear Antibody Screen NEGATIVE (NEGATIVE)
== END 2025-05-31 08:26 | disposition home or self-care (01) ==
LOC: HO.LAB 08:25
PROVIDERS: PCP Family Medicine; Visit Provider Psychiatry & Neurology Neurology
DX: G43.109 Migraine with aura, not intractable, without status migrainosus (principal); R90.82 White matter disease, unspecified; F41.9 Anxiety disorder, unspecified; F32.A Depression, unspecified; Z01.84 Encounter for antibody response examination
CPT/HCPCS: 36415; 82784; 85652; 86038; 86039; 86225; 86334; 86431; 99212

== ENCOUNTER 2025-06-20 11:44 | Outpatient (AMB) | payer OTHER, SELFPAY ==
--- NOTE | 2025-06-20 11:47 | A.OFFVIS_ITS ---
Vital Signs 06/20/25 11:51 Height 5 ft 4 in Weight 164 lb BMI 28.1 BP 114/78 Blood Pressure Location Rt brachial Position Sitting Respiration 16 Pulse 78 Pulse Source Pulse Oximeter Pulse Oximetry (%) 98 Oxygen Delivery Method Room Air Intake Visit Reasons: 3 week followup Portable Power Tool Repairer Required: No Allergies No Known Allergies Allergy (Verified 06/20/25 11:52) HPI Comments Details: Sergio is a 40-year-old female patient following in the clinic for symptoms including as, headaches, and mood symptoms. She was last seen by Dr. Franco were reviewed her MRI was her and ordered labs including an MARIA ANTONIA, DSD, and inflammatory markers. Her labs were negative. Her MRI of the brain was performed at [facility] in January of 2025 which showed a few small flare hyperintensities, nonspecific but not trivial. She is seeing me today for headache evaluation and management. She tells me today that she has been dealing with cluster headaches for the course of the last year. Prior to this, her headaches were infrequent perhaps once or twice per year. She describes her headaches are bilateral typically originating in the occipital areas and radiating into the frontal areas and bitemporal leads. Her headaches feel like a squeezing pressure sensation can be associated with light sensitivity. She does not have any profound or obvious related nausea or light sensitivity. She does not have any vision changes or auras. Her headaches frequency varies drastically and can be anywhere from once per week to daily. Often the frequency fluctuates throughout the month. They can last hours up to day. She has not noticed any specific triggers though bright lights and stress may be associated. She takes escitalopram for her moods and it was recently increased to 7.5 mg. This has helped her moods profoundly and she also has noticed an improvement in her sleep on this dose. Past medication trials: ibuprofen [facility] Medical History (Updated 06/20/25 @ 12:41 by Aretha Medina CNP) Obesity Urinary frequency Vitamin D deficiency Panic attacks Prediabetes Cervicalgia Allergic rhinitis Brain fog Acute midline back pain Multiple joint pain Anxiety and depression Hyperlipidemia Surgical History (Updated 11/19/22 @ 10:11 by ANNA Alvarez) History of abnormal cervical Pap smear Family History (Updated 11/24/22 @ 08:32 by ANNA Alvarez) Mother Lung cancer Father Medical history unknown Social History (Updated 11/24/22 @ 08:33 by Delia Agosto [facility]) Alcohol intake: current Alcohol intake frequency: holidays/special occasions only Patient Tobacco Use Status: Former Tobacco user Current occupational status: employed Current occupation: Hairdresser Review of Systems Const All systems reviewed & are unremarkable except as noted in HPI and below Physical Exam Vital Signs: Last Vital Signs Pulse 78 06/20/25 11:51 Resp 16 06/20/25 11:51 BP 114/78 06/20/25 11:51 Pulse Ox 98 06/20/25 11:51 Oxygen Delivery Method Room Air 06/20/25 11:51 BMI result Body Mass Index 28.1 Const General: cooperative, healthy appearing, comfortable and no acute distress Nutritional Appearance: well nourished Orientation/consciousness: patient oriented x3 Limitations: no limitations HEENT Head: Yes normal to inspection and Yes normocephalic Eyes General: appearance normal, both eyes and all related structures Visual Thacker: normal visual thacker by confrontation Alignment and Position: alignment normal Periorbital: periorbital findings normal Eyelids: Yes eyelids normal Conjunctivae: conjunctivae normal Sclerae: sclerae normal Back/Spine/Pelvis Other: Bilateral upper trapezius tightening. Neuro General: patient oriented x3 Cranial nerves: Yes CN's II-XII intact bilaterally and Yes Facial sensation intact/muscles of mastication intact Cognition (Neuro): normal cognition Gait exam (Neuro): Normal gait present Motor exam (neuro): no tremor noted Sensory Exam: double simultaneous stimulation for sensation normal Romberg Test: Negative Pupils: Normal pupillary reactivity/response: bilateral Psych Appearance: grossly normal Mental Status: mental status grossly normal Speech and movement: Normal speech and movement present and Clear speech present Affect: normal affect Attitude: cooperative Thought process: Normal thought process present Thought content: Normal thought content present Insight: Good insight present (Psych) Judgement: Good judgement present (Psych) Assessment & Plan Assessment & Plan (1) TTH (tension-type headache), frequent episodic type: Code(s): G44.219 - Episodic tension-type headache, not intractable Category: Medical (2) Muscle pain, myofascial: Code(s): M79.18 - Myalgia, other site Category: Medical Plan Sergio is a 40-year-old female patient following in the clinic for symptoms including as, headaches, and mood symptoms. Focusing on her headaches today, headaches are characteristic of a frequent episodic tension-type headache with some notable tightening of the trapezius muscles on exam note associated tenderness. We will start with tizanidine as needed and a trial of physical therapy. If these measures are inadequate, could consider trigger point injections moving forward. -PT for myofacial release and dry needling -Tizanidine 2-4mg as needed -Follow-up in 2 months or sooner if needed Orders: Orders PT Evaluation and Treatment Today G44.219 - Episodic tension-type headache, not intractable, M79.18 - Myalgia, other site Medications: New tizanidine Take 1-2 tablets as needed every 12hrs for muscle tightness and associated headache 4 mg (2 x 2 mg) PO Q12H PRN 60 tabs 3RF muscle spasticity 30 days Coding Level of Care Code Est Pt Level 4 (93816) Diagnoses TTH (tension-type headache), frequent episodic type G44.219 Muscle pain, myofascial M79.18
[2025-06-20 11:51] VITALS: BP 114/78; PULSE 78; RESP 16; O2SAT 98; BMI 28.1
--- OUTSIDE RECORDS SUMMARY | 2025-06-20 22:53 | XMS_ITS | Clinical Summary ---
Author Organization [facility] [address] [place] [address] [place] [phone] Phone Care Team Providers Care Quality Assurance Monitor Final Name Role Phone Janey Lizarraga MD Primary [...] orthopedics/physical therapy Advised she can use Tylenol [id number] as needed for the pain Orders: Ambulatory [...] Encounters Date Type Department Care Team Description 05/31/2025 Results Follow-Up Adult Medicine [address] [phone] Gretchen Malave MD 05/30/2025 4:52 PM EDT - 05/30/2025 11:59 PM EDT Hospital Encounter Radiology Department - [address] [phone] Submandibular lymphadenitis Discharge Disposition: Home or Self Care 05/24/2025 3:00 PM EDT Office Visit Orthopedic Surgery - [place] [address] [place] [phone] Nazanin Irizarry MD 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 (Primary Dx) 04/16/2025 2:03 PM EDT - 04/16/2025 11:59 PM EDT Hospital Encounter Radiology Department - [address] [phone] Abnormal mammogram Discharge Disposition: Home or Self Care 04/16/2025 2:03 PM EDT - 04/16/2025 11:59 PM EDT Hospital Encounter Radiology Department - [address] [phone] Abnormal mammogram Discharge Disposition: Home or Self Care 04/09/[address] [phone] Janey Lizarraga MD 03/26/2025 4:48 PM EDT - 03/26/2025 11:59 PM EDT Hospital Encounter [address] [phone] Pain of left hip Discharge Disposition: Home or Self Care 03/26/2025 4:00 PM EDT Office Visit [address] [phone] Janey Lizarraga MD Pain of left hip (Primary Dx); Esophagitis; Pharyngeal dysphagia; Hoarseness; Fibromyalgia; Moderate episode of recurrent major depressive disorder (CMS/HCC V24, CMS/HCC V28); Submandibular lymphadenitis; Abnormal finding on MRI of brain 03/21/2025 9:21 AM EDT - 03/21/2025 11:59 PM EDT Hospital Encounter Radiology Department - [address] [phone] Encounter for screening mammogram for breast cancer Discharge Disposition: Home or Self Care from Last 3 Months Immunizations Immunization Administration [...] Care Team (Late st Contact Info) Description 07/06/2025 9:20 AM EST Consult Gastroenterology - [address] [facility] [address] [place] [phone] Love Blanco MD 299 [facility] [address] [place] [phone] 07/16/2025 1:30 PM EST Office Visit Orthopedic Surgery - [place] 160 [address] [facility] 160 [place] [phone] Nazanin Irizarry MD 175 [facility] 160 [place] [address] Health Maintenance Due Date Last Done Comments Social Influencers of Health Screening 07/05/2022 Depression Screening 08/02/2024 04/27/2024 COVID-19 Vaccine ( season) 2025 05/09/2021, 04/18/2021 HPV Vaccines (2 [...] Name Priority Date/Time Associated Diagnosis Comments US HEAD NECK SOFT TISSUE Routine 05/30/2025 5:01 PM EDT Submandibular lymphadenitis US BREAST LIMITED RIGHT Routine 04/16/2025 2:42 [...] Encounter for screening mammogram for breast cancer LIPID PANEL WITH REFLEX TO DIRECT LDL Routine 02/12/2025 1:53 PM EDT Hyperlipidemia, unspecified hyperlipidemia type DEPRESSION SCREENING Routine 04/27/2024 HEPATITIS C SCREENING Routine 03/09/2023 HIV SCREENING Routine 03/09/2023 HPV Routine 04/10/2021 from Last 3 Months or Most Recently Relevant to Health Maintenance Results * US Head Neck Soft Tissue (05/30/2025 5:01 PM EDT) Anatomical Region Laterality Modality Head and Neck Ultrasound 05/31/2025 11:2 2 AM EDT Impressions 05/31/2025 11:23 AM EDT Interval mild decrease in size of previously identified lymph node -------- FINAL REPORT -------- Dictated By: Jaky Rosenbaum Dictated Date: 05/31/2025 11:22 ET Assigned Physician: Jaky Rosenbaum Reviewed and Electronically Signed By: Jaky Rosenbaum Signed Date: 05/31/2025 11:23 ET Workstation ID: [id number] Transcribed By: Self Edit Transcribed Date: 05/31/2025 11:22 ET Narrative 05/31/2025 11:23 AM EDT EXAMINATION: US HEAD NECK SOFT TISSUE 05/30/2025 5:00 PM Patient : 1985 CLINICAL DATA/INDICATIONS: right submandibular lymphadenopathy COMPARISON: Ultrasound soft tissue neck from 02/14/2025 TECHNIQUE: Multiple grayscale images of the subcutaneous soft tissues of the right submandibular region with limited color Doppler flow FINDINGS: There is an ovoid hypoechoic submandibular node measuring 1.8 x 0.8 x 1.2 cm previously measuring 1.9 x 0.9 x 1.4 cm. Procedure Note Jaky Rosenbaum MD - 05/31/2025 EXAMINATION: US HEAD NECK SOFT TISSUE 05/30/2025 5:00 PM Patient :1985 CLINICAL DATA/INDICATIONS: right submandibular lymphadenopathy COMPARISON: Ultrasound soft tissue neck from 02/14/2025 TECHNIQUE: Multiple grayscale images of the subcutaneous soft tissues ofthe right submandibular region with limited color Doppler flow FINDINGS: There is an ovoid hypoechoic submandibular node measuring 1.8 x 0.8 x 1.2cm previously measuring 1.9 x 0.9 x 1.4 cm. IMPRESSION: Interval mild decrease in size of previously identified lymph node -------- FINAL REPORT -------- Dictated By: Jaky Rosenbaum Dictated Date: 05/31/2025 11:22 ET Assigned Physician: Jaky Rosenbaum Reviewed and Electronically Signed By: Jaky Rosenbaum Signed Date: 05/31/2025 11:23 ET Workstation ID: [id number] Transcribed By: Self Edit Transcribed Date: 05/31/2025 11:22 ET Janey Lizarraga MD IMG US PROCEDURE S Final Result * US Breast Limited Right (04/16/2025 2:42 PM EDT) Anatomical Region Laterality Modality Breast Right Ultrasound 04/16/2025 2:34 PM EDT Impressions 04/16/2025 3:38 PM EDT Benign. Findings and recommendations were conveyed to the patient. BI-RADS CATEGORY: 1 - NEGATIVE RECOMMENDATION: Return to annual mammography. Return to annual mammography. Return to annual mammography. Return to annual mammography. Mammo Location: [facility], [address] [place] [address], [phone], . -------- FINAL REPORT -------- Dictated By: Nette Taylor Dictated Date: 04/16/2025 14:34 ET Assigned Physician: Nette Taylor Reviewed and Electronically Signed By: Nette Taylor Signed Date: 04/16/2025 15:38 ET Workstation ID: [id number] Transcribed By: Self Edit Transcribed Date: 04/16/2025 [...] mammography. Return to annual mammography. Mammo Location: [facility], [address] [place] [address], [phone], . -------- FINAL REPORT -------- Dictated By: Nette Taylor Dictated Date: 04/16/2025 14:34 ET Assigned Physician: Nette Taylor Reviewed and Electronically Signed By: Nette Taylor Signed Date: 04/16/2025 15:38 ET Workstation ID: [id number] Transcribed By: Self Edit Transcribed Date: 04/16/2025 14:39 ET Janey Lizarraga MD IMG US PROCEDURE S [...] mammography. Return to annual mammography. Mammo Location: [facility], [address] [place] [address], [phone], . -------- FINAL REPORT -------- Dictated By: Nette Taylor Dictated Date: 04/16/2025 14:34 ET Assigned Physician: Nette Taylor Reviewed and Electronically Signed By: Nette Taylor Signed Date: 04/16/2025 15:38 ET Workstation ID: [id number] Transcribed By: Self Edit Transcribed Date: 04/16/2025 [...] mammography. Return to annual mammography. Mammo Location: [facility], [address] [place] [address], [phone], . -------- FINAL REPORT -------- Dictated By: Nette Taylor Dictated Date: 04/16/2025 14:34 ET Assigned Physician: Nette Taylor Reviewed and Electronically Signed By: Nette Taylor Signed Date: 04/16/2025 15:38 ET Workstation ID: [id number] Transcribed By: Self Edit Transcribed Date: 04/16/2025 14:39 ET Janey Lizarraga MD IMG BI PROCEDURE S Final Result * Helicobacter pylori breath test (03/27/2025 12:18 PM EDT) H Pylori Breath Test Negative Negative LAB CHEMISTRY METHOD 03/28/2025 2:09 PM EDT [facility] Breath Oral cavity structure / Unknown Non-blood Collection / Unknown 03/27/2025 12:18 PM EDT 03/27/2025 12:18 PM EDT Janey Lizarraga MD LAB BODY FLUIDS AND STOOLS ORDERABLES Final Result [facility] [address] [place] [address], [place] [phone] * XR Hip 2-3 Views Left (03/26/2025 4:55 PM EDT) Anatomical Region Laterality Modality Lower Extremities, Hip Left Radiograp hic Imaging 03/26/2025 8:14 PM EDT Impressions 03/26/2025 8:22 PM EDT Probable calcific tendinopathy as described. POS - [id number] -------- FINAL REPORT -------- Dictated By: Jennifer Friend Dictated Date: 03/26/2025 20:14 ET Assigned Physician: Jennifer Friend Reviewed and Electronically Signed By: Jennifer Friend Signed Date: 03/26/2025 20:22 ET Workstation ID: [id number] Transcribed By: Self Edit Transcribed Date: 03/26/2025 [...] Probable calcific tendinopathy as described. POS - [id number] -------- FINAL REPORT -------- Dictated By: Jennifer Friend Dictated Date: 03/26/2025 20:14 ET Assigned Physician: Jennifer Friend Reviewed and Electronically Signed By: Jennifer Friend Signed Date: 03/26/2025 20:22 ET Workstation ID: [id number] Transcribed By: Self Edit Transcribed Date: 03/26/2025 [...] recommended for the Right Breast. Mammo Location: [facility], [address] [place] [address], [phone], . -------- FINAL REPORT -------- Dictated By: Nette Taylor Dictated Date: 03/22/2025 10:14 ET Assigned Physician: Nette Taylor Reviewed and Electronically Signed By: Nette Taylor Signed Date: 03/22/2025 10:35 ET Workstation ID: [id number] Transcribed By: Self Edit Transcribed Date: 03/22/2025 [...] is recommended forthe Right Breast. Mammo Location: [facility], [address] [place] [address], [phone], . -------- FINAL REPORT -------- Dictated By: Nette Taylor Dictated Date: 03/22/2025 10:14 ET Assigned Physician: Nette Taylor Reviewed and Electronically Signed By: Nette Taylor Signed Date: 03/22/2025 10:35 ET Workstation ID: [id number] Transcribed By: Self Edit Transcribed Date: 03/22/2025 10:18 ET us Janey Lizarraga MD IM BI PROCEDURE S Final Result * (ABNORMAL) Lipid panel with reflex to direct LDL (02/12/2025 1:53 PM EDT) Cholesterol 250(H) 0 - 200 mg/dL LAB CHEMISTRY METHOD 02/12/2025 8:54 PM EDT [facility] Triglycerides 119 0 - 150 mg/dL LAB CHEMISTRY METHOD 02/12/2025 8:54 PM EDT [facility] HDL 61 >=40 mg/dL LAB CHEMISTRY METHOD 02/12/2025 8:54 PM EDT [facility] LDL Calculated 165(H) 0 - 100 mg/dL LAB CHEMISTRY METHOD 02/12/2025 8:54 PM EDT [facility] VLDL Cholesterol Tor 23.8 mg/dL LAB CHEMISTRY METHOD 02/12/2025 8:54 PM EDT [facility] Non HDL Chol. (LDL+VLDL) 189(H) <145 mg/dL LAB CHEMISTRY METHOD 02/12/2025 8:54 PM EDT [facility] Chol/HDL Ratio 4.1 0.0 - 4.4 LAB CHEMISTRY METHOD 02/12/2025 8:54 PM EDT [facility] Blood Venous blood specimen / Unknown Venipuncture / Unknown 02/12/2025 1:53 PM EDT 02/12/2025 1:53 PM EDT Gretchen Malave MD LAB BLOOD ORDERABLES Final Result [facility] [address] [place] [address], * Depression Screening (04/27/2024) Pathologist [facility] Depression Screening abstracted Historical Provider HEALTH MAINTENANCE Final Result * HIV Screening (03/09/2023) [facility] HIV Screening abstracted Historical Provider HEALTH MAINTENANCE Final Result * Hepatitis C Screening (03/09/2023) [facility] Hepatitis C Screening abstracted [facility] Provider HEALTH MAINTENANCE Final Result * Cervical Cancer Screening: HPV (04/10/2021) [facility] Cervical Cancer Screening: HPV positive, abstracted Comment:HIGH RISK HPV: POSIT GOMEZ, HPV 16: NEGATIVE HPV 18/45: NEGATIVE Historical Provider HEALTH MAINTENANCE Final Result from Last 3 Months or Most Recently Relevant to Health Maintenance Insurance [employer] Care Teams Quality Assurance Monitor Final Relationship Specialty Start Date End Date Janey Lizarraga MD [address] [place] [phone] PCP - General Internal Medicine 09/13/24
--- OUTSIDE RECORDS SUMMARY | 2025-06-20 22:53 | XMS_ITS | Encounter Summary ---
Author Organization [facility] Address [address] [place] [address] Care Team Providers Care Trial Attorney Name Role Phone Janey Lizarraga MD Primary Care Pr ovider Reason for Referral * Consultation (Routine) - Pending Review Specialty Diagnoses / Procedures Referred By Sofía lorenz Referred To Contact Otolaryngology Diagnoses Submandibular lymphadenopathy Gretchen Malave MD [address] [place] [address] Phone: tel: fax: Referral ID Status Reason Start Date Expiration Date Visits Requested Visits Authorized [id number] Pending Review Specialty Services Required 05/31/2026 1 1 Encounter Details Date Type Department Care Team (Late st Contact Info) Description 05/31/2025 Results Follow-Up Adult Medicine [address] [phone] Gretchen Malave MD [address] [place] [phone] Social History Tobacco Use Types Packs/Day Years [...] PM EST documented as of this encounter Plan of Treatment Upcoming Encounters Date Type Department Care Team (Late st Contact Info) Description 07/06/2025 9:20 AM EST Consult Gastroenterology - [address] [facility] [address] [place] [address] Love Blanco MD 299 [facility] [address] [place] [address] 07/16/2025 1:30 PM EST Office Visit Orthopedic Surgery - [place] [address] 175 [facility] 160 [place] [phone] Nazanin Irizarry MD 175 [facility] 160 [place] [address] Scheduled Referrals Name Type Priority Associated Diagnoses Orde r Schedule Ambulatory referral to ENT Outpatient Referral Routine Submandibular lymphadenopathy 1 Occurrences starting 05/31/2025 until 05/31/2026 documented as of this encounter Visit Diagnoses Diagnosis Submandibular lymphadenopathy- Primary documented in this encounter Care Teams Trial Attorney Relationship Specialty Start Date End Date aJney Lizarraga MD [address] [place] [phone] PCP - General Internal Medicine 09/13/24 documented as of this encounter
== END 2025-06-20 12:20 | disposition home or self-care (01) ==
LOC: HO.HSM 11:45
PROVIDERS: Visit Provider Nurse Practitioner
DX: G44.219 Episodic tension-type headache, not intractable (principal); M79.18 Myalgia, other site
CPT/HCPCS: 99214

== ENCOUNTER → 2025-06-20 11:44 | Outpatient (BNVA) | payer OTHER, SELFPAY | PROVIDERS: Visit Provider Nurse Practitioner | DX: G44.219 Episodic tension-type headache, not intractable (principal); M79.18 Myalgia, other site | CPT/HCPCS: 99212 ==